=== PATIENT | female | born 1945 | race Hispanic/Latino ===

== ENCOUNTER 2017-12-25 15:24 | Inpatient (IN) | payer MEDICARE, BC ==
[2017-12-25 15:25] VITALS: BMI 25.7
--- NOTE | 2017-12-25 16:16 | C.PDOC ---
History Of Present Illness Patient is a 72 y/o female who presents to the ED with complaints of difficulty urinating and constipation for the last year. Patient's PMD Dr Whitaker is aware patient is in ED. Patient admits to taking lasix, methadone, and xanax. No other physical complaints at this time. She states she has tried numerous laxatives at home but with no success. Time Seen by Provider: 12/25/17 15:47 Chief Complaint (Nursing): Abdominal Pain History Per: Patient History/Exam Limitations: no limitations Onset/Duration Of Symptoms: Days (1 year) Current Symptoms Are (Timing): Still Present Context: Food Location Of Pain/Discomfort: Diffuse Associated Symptoms: Constipation, Urinary Symptoms (difficulty urinating) Recent travel outside of the [place]: No Past Medical History Reviewed: Historical Data, Nursing Documentation, Vital Signs Vital Signs: Last Vital Signs Temp 98.0 F 12/25/17 17:57 Pulse 71 12/25/17 17:57 Resp 18 12/25/17 17:57 BP 102/65 12/25/17 17:57 Pulse Ox 98 12/25/17 19:09 - Medical History PMH: Anxiety, CHF (possible), Fibromyalgia Other Surgeries: CATARAC PHACOEMULS/ASPIR (06/28/13). CYSTOMETROGRAM (10/27/13) . INSERT LENS AT CATAR EXT (06/28/13). URETHRAL DILATION (10/27/13) - [facility] Procedures CATARAC PHACOEMULS/ASPIR (06/28/13) CYSTOMETROGRAM (10/27/13) INSERT LENS AT CATAR EXT (06/28/13) URETHRAL DILATION (10/27/13) Family History: States: No Known Family Hx - Social History Hx Tobacco Use: No Hx Alcohol Use: No Hx Substance Use: No - Immunization History Hx Tetanus Toxoid Vaccination: No Hx Influenza Vaccination: No Hx Pneumococcal Vaccination: No Review Of Systems Except As Marked, All Systems Reviewed And Found Negative. Constitutional: Negative for: Fever Cardiovascular: Negative for: Chest Pain Gastrointestinal: Positive for: Constipation Genitourinary: Positive for: Other (difficulty urinating) Physical Exam - Physical Exam Additional Physical Exam Comments: Constitutional: No acute distress. Head: Normocephalic. Atraumatic. Eyes: PERRL. ENT: Moist mucous membranes. Neck: Supple. Cardiovascular: Regular rate. Radial pulse 2+ bilaterally. Chest: No tenderness. Respiratory: Clear to auscultation bilaterally. GI: Soft. Nontender. Nondistended. Back: No CVA tenderness. Musculoskeletal: No tenderness or swelling of extremities. Skin: No rash. Neurologic: Alert, no focal deficit. ED Course And Treatment - Laboratory Results Result Diagrams: 12/25/17 17:16 12/25/17 17:16 O2 Sat by Pulse Oximetry: 98 - CT Scan/US CT abdomen/pelvis Other Rad Studies (CT/US): Interpreted By Me, Read By Radiologist CT/US Interpretation: PROCEDURE: CT Abdomen and Pelvis without intravenous contrast. HISTORY: abd pain. COMPARISON: Comparison is made to the previous study dated 10/26/2013. TECHNIQUE: Technique. Axial and reformatted coronal and sagittal CT images of the abdomen and pelvis were obtained without IV or oral contrast administration. Contrast dose: Radiation dose: Total exam DLP = 209.05 mGy-cm. This CT exam was performed using one or more of the following dose reduction techniques: Automated exposure control, adjustment of the mA and/ or kV according to patient size, and/or use of iterative reconstruction technique. FINDINGS: LOWER THORAX: Unremarkable. LIVER: Unremarkable. No gross lesion or ductal dilatation. GALLBLADDER AND BILE DUCTS: There is no evidence of cholecystitis. The common bile duct is mildly dilated. PANCREAS: No evidence of pancreatitis or dilated main pancreatic duct. SPLEEN: Unremarkable. ADRENALS: Unremarkable. No mass. KIDNEYS AND URETERS: Unremarkable. No hydronephrosis. No solid mass. VASCULATURE: Unremarkable. No aortic aneurysm. BOWEL: Mildly distended large bowel loops demonstrate air- fluid levels and contains fluid density stool PE no evidence of small bowel obstruction. APPENDIX: No evidence of appendicitis. PERITONEUM: Unremarkable. No free fluid. No free air. LYMPH NODES: Unremarkable. No enlarged lymph nodes. BLADDER: There is Guerrero catheter in the bladder. The bladder is mildly distended. REPRODUCTIVE: Unremarkable. BONES: No acute fracture. OTHER FINDINGS: None. IMPRESSION: Limited assessment without IV or oral contrast administration. No evidence of nephrolithiasis or hydronephrosis. Distended large bowel contains fluid density stool and contains air-fluid levels. Correlate clinically for diarrhea and colitis. No evidence of cholecystitis. Mildly dilated common bile duct again noted. Progress Note: CT abdomen/pelvis, EKG, CXR, CBC, blood work, UA ordered. Medical Decision Making Medical Decision Making: CT A/P: IMPRESSION: Limited assessment without IV or oral contrast administration. No evidence of nephrolithiasis or hydronephrosis. Distended large bowel contains fluid density stool and contains air-fluid levels. Correlate clinically for diarrhea and colitis. No evidence of cholecystitis. Mildly dilated common bile duct again noted. Patient failed outpatient therapy. Dr. Whitaker agrees with observation under his service. Disposition - Disposition Disposition: HOSPITALIZED Disposition Time: 17:35 Condition: FAIR - Clinical Impression Clinical Impression: Constipation, Hyponatremia - Scribe Statement The provider has reviewed the documentation as recorded by the Scribe Julissa Ballesteros All medical record entries made by the Darreliberlinda were at my direction and personally dictated by me. I have reviewed the chart and agree that the record accurately reflects my personal performance of the history, physical exam, medical decision making, and the department course for this patient. I have also personally directed, reviewed, and agree with the discharge instructions and disposition.
[2017-12-25 17:20] LABS: BASO % 0.7 % (0.0-2.0); EOS # 0.1 K/uL (0.0-0.7); EOS % 1.8 % (0.0-4.0); HEMOGLOBIN 10.5 g/dL (11.0-16.0); LYMPH # 1.1 K/uL (1.0-4.3); LYMPH % 21.8 % (20.0-40.0); MEAN CELL VOLUME 89.4 fL (81.0-99.0); MEAN CORPUSCULAR HEMOGLOBIN 30.6 pg (27.0-31.0); MEAN CORPUSCULAR HGB CONC 34.2 g/dL (33.0-37.0); MEAN PLATELET VOLUME 6.9 fL (7.2-11.7); MONO # 0.4 K/uL (0.0-0.8); NEUT # 3.4 K/uL (1.8-7.0); NEUT % 67.7 % (50.0-75.0); RBC 3.44 Mil/uL (3.80-5.20); RED CELL DISTRIBUTION WIDTH 12.7 % (11.5-14.5)
[2017-12-25 17:25] LABS: URINE BACTERIA RARE (<OCC); URINE BILIRUBIN NEGATIVE (NEGATIVE); URINE BLOOD NEGATIVE (NEGATIVE); URINE CLARITY Clear (Clear); URINE COLOR Yellow (YELLOW); URINE GLUCOSE (UA) NORMAL (Normal); URINE HYALINE CAST 0-2 /lpf (0-2); URINE LEUKOCYTE ESTERASE NEG Leu/uL (Negative); URINE PROTEIN NEGATIVE (NEGATIVE); URINE UROBILINOGEN NORMAL mg/dL (0.2-1.0)
[2017-12-25 17:32] LABS: ALB/GLOB RATIO 1.3 (1.0-2.1); ALBUMIN 3.6 g/dL (3.5-5.0); CALCIUM 8.9 mg/dl (8.6-10.4)
--- NOTE | 2017-12-25 18:20 | CT ---
PROCEDURE: CT Abdomen and Pelvis without intravenous contrast HISTORY: abd pain COMPARISON: Comparison is made to the previous study dated 10/26/2013 TECHNIQUE: Technique. Axial and reformatted coronal and sagittal CT images of the abdomen and pelvis were obtained without IV or oral contrast administration. Contrast dose: Radiation dose: Total exam DLP = 209.05 mGy-cm. This CT exam was performed using one or more of the following dose reduction techniques: Automated exposure control, adjustment of the mA and/or kV according to patient size, and/or use of iterative reconstruction technique. FINDINGS: LOWER THORAX: Unremarkable. LIVER: Unremarkable. No gross lesion or ductal dilatation. GALLBLADDER AND BILE DUCTS: There is no evidence of cholecystitis. The common bile duct is mildly dilated. PANCREAS: No evidence of pancreatitis or dilated main pancreatic duct SPLEEN: Unremarkable. ADRENALS: Unremarkable. No mass. KIDNEYS AND URETERS: Unremarkable. No hydronephrosis. No solid mass. VASCULATURE: Unremarkable. No aortic aneurysm. BOWEL: Mildly distended large bowel loops demonstrate air-fluid levels and contains fluid density stool PE no evidence of small bowel obstruction. APPENDIX: No evidence of appendicitis. PERITONEUM: Unremarkable. No free fluid. No free air. LYMPH NODES: Unremarkable. No enlarged lymph nodes. BLADDER: There is Guerrero catheter in the bladder. The bladder is mildly distended. REPRODUCTIVE: Unremarkable. BONES: No acute fracture. OTHER FINDINGS: None. IMPRESSION: Limited assessment without IV or oral contrast administration. No evidence of nephrolithiasis or hydronephrosis. Distended large bowel contains fluid density stool and contains air-fluid levels. Correlate clinically for diarrhea and colitis. No evidence of cholecystitis. Mildly dilated common bile duct again noted.
[2017-12-25] MEDS ORDERED: Sodium Chloride 0.9% 1,000 ML IV ONE (18:50)
[2017-12-25] MEDS ORDERED: Sodium Chloride 0.9% 250 ML IV ONE (18:54)
--- NOTE | 2017-12-25 19:32 | RAD ---
HISTORY: abd pain COMPARISON: Comparison is made with 04/11/2013 FINDINGS: LUNGS: Hyperinflation of the lungs is noted. No evidence of new infiltrate or consolidation. PLEURA: No significant pleural effusion identified, no pneumothorax apparent. CARDIOVASCULAR: Normal. OSSEOUS STRUCTURES: No significant abnormalities. VISUALIZED UPPER ABDOMEN: Normal. OTHER FINDINGS: None. IMPRESSION: No evidence of acute pulmonary disease.
[2017-12-26] MEDS ORDERED: Home Med 1 UNIT (Alprazolam [Xanax] 2 MG) PO SCH ×2 (10:00)
[2017-12-26] MEDS ORDERED: Peg-Electrolyte Oral Soln 4L (Golytely) PO ONE (11:00)
--- NOTE | 2017-12-26 14:46 | PN ---
DATE: 12/26/2017 LOCATION: 562, bed A. SUBJECTIVE: This is a 72-year-old female seen and examined initially for GI consultation on 12/25/2017. They examined again today with complaint of severe constipation, postprandial abdominal distention with painful bowel movement, with generalized weakness and malaise. The most recent lab results, current and previous medication lists, current and previous medical events were reviewed and the patient had low hemoglobin of 10.5, hematocrit 30.7, sodium 129, CO2 content of 32. Abdominal and pelvic CAT scan done yesterday at the time of the admission indicative of limited study. Report is seen. The patient denied any actual chest pain, significant shortness of breath or palpitations, still has Guerrero catheter in place. PHYSICAL EXAMINATION: GENERAL: A 72-year-old female awake, alert, oriented, very anxious and restless. VITAL SIGNS: Afebrile with pulse of 76, respiratory rate 20 to 22, and blood pressure 124/74. HEENT: Showed pale, dry and oral mucous membranes. Nonicteric sclerae. LUNGS: Few scattered crepitation. Decreased air entry at bases. HEART: Positive S1 and S2. ABDOMEN: Soft with mild generalized tenderness, mildly distended. No mass or organomegaly. No rebound tenderness or guarding. EXTREMITIES: Without significant clubbing, cyanosis or edema. NEUROLOGIC: No reported new neurological deficits, sensory or motor. IMPRESSION: 1. Change of bowel movement habit of unclear etiology. 2. Known history of severe anxiety syndrome. 3. Fibromyalgia, by history. 4. Cataract surgery. 5. Reported history of questionable congestive heart failure before. 6. History of peptic ulcer disease. 7. Anemia to rule out occult gastrointestinal malignancy. 8. Electrolyte imbalance with hyponatremia. SUGGESTIONS: 1. Continue current management. 2. Cancer markers. 3. Endoscopic evaluation of the lower GI tract pending adequate preparation. 4. Further recommendations to follow. Vanessa Castaneda MD
[2017-12-26] MEDS ORDERED: Bisacodyl 5mg EC Tab PO ONE (17:00)
[2017-12-26] MEDS ORDERED: DiphenhydrAMINE 50 mg/ml Inj IVP ONE (21:25)
[2017-12-27] MEDS ORDERED: Simethicone 40 mg/0.6 ml Liquid (30 ml) PO ONE (01:28)
[2017-12-27 07:32] VITALS: O2SAT 96
[2017-12-27] MEDS ORDERED: Bisacodyl 5mg EC Tab PO ONE (08:00)
--- NOTE | 2017-12-27 08:15 | HP ---
HISTORY OF PRESENT ILLNESS: The patient is a 72-year-old female, history of chronic constipation, history of chronic pain, also complains of intractable constipation and abdominal pain. The patient came to the hospital, advised admission. The patient had been needing methadone for chronic pain. The patient has multiple laxatives, seen by several laborer pole crew, colorectal surgeon without improvement. The patient has been followed by pain management as well. The patient is a nonsmoker, nondrinker. The patient ____ anxiety. PHYSICAL EXAMINATION: GENERAL: The patient is awake, alert, and oriented. VITAL SIGNS: Temperature 98 and pulse 90. HEENT: Within normal limits. NECK: Supple. CHEST: Symmetrical. HEART: Regular. ABDOMEN: Soft. EXTREMITIES: No edema. ASSESSMENT AND PLAN: The patient suffers from intractable constipation, intractable abdominal pain, UTI. The patient to get bed rest, supportive care. Edd Whitaker MD
[2017-12-27] MEDS ORDERED: Enoxaparin 30 mg Syringe SC SCH (10:00)
--- NOTE | 2017-12-27 11:24 | CP.PCM.PN ---
Subjective - Date & Time of Evaluation Date of Evaluation: 12/27/17 Time of Evaluation: 11:20 - Subjective Subjective: Progress note. Attending: Dr. Whitaker. Pt seen and examined at bedside. No acute distress, but pt is upset she did not get ambien. Refusing colonoscopy. No fevers, chills, vomiting, diarrhea. Objective - Vital Signs/Intake and Output Vital Signs (last 24 hours): Temp Pulse Resp BP Pulse Ox 97.7 F 71 20 120/74 96 12/27/17 07:00 12/27/17 07:00 12/27/17 07:00 12/27/17 07:00 12/27/17 07:00 Intake and Output: 12/27/17 12/27/17 06:59 18:59 Intake Total 750 Output Total 2150 Balance -1400 - Medications Medications: Current Medications Enoxaparin Sodium (Lovenox) 30 mg SC DAILY [facility] Furosemide (Lasix) 40 mg PO DAILY [facility] Last Admin: 12/26/17 10:06 Dose: 40 mg Home Med (Alprazolam [Xanax]) 2 mg PO TID [facility] Methadone HCl (Methadone) 20 mg PO DAILY [facility] Last Admin: 12/26/17 10:08 Dose: 20 mg Methadone HCl (Methadone) 5 mg PO DAILY [facility] Last Admin: 12/26/17 10:08 Dose: 5 mg Metoclopramide HCl (Reglan) 5 mg IVP Q6H [facility] Last Admin: 12/27/17 08:38 Dose: 5 mg - Labs Labs: 12/25/17 17:16 12/25/17 17:16 - Constitutional Appears: Unkempt, Chronically Ill - Head Exam Head Exam: ATRAUMATIC, NORMAL INSPECTION, NORMOCEPHALIC - Eye Exam Eye Exam: EOMI - ENT Exam ENT Exam: Mucous Membranes Moist - Neck Exam Neck Exam: Full ROM, Normal Inspection - Respiratory Exam Respiratory Exam: NORMAL BREATHING PATTERN. absent: Respiratory Distress - Cardiovascular Exam Cardiovascular Exam: +S1, +S2 - GI/Abdominal Exam GI & Abdominal Exam: Soft, Tenderness, Normal Bowel Sounds - Back Exam Back Exam: NORMAL INSPECTION - Neurological Exam Neurological Exam: Alert, Awake, Oriented x3 - Psychiatric Exam Psychiatric exam: Flat Affect - Skin Skin Exam: Dry, Intact, Normal Color, Warm Assessment and Plan - Assessment and Plan (Free Text) Assessment: This is a 72 yo female with 1. Constipation/abdominal pain -ct scan shows distended large bowel with stool -reglan prn -pt refusing colonoscopy. -GI consult. Dr. Valdivia. recs appreciated. 2. Heroin abuse -methadone 25 mg po daily -psych consult? 3. hx of anxiety -xanax 2 mg po tid caridad 4. Hx of heart failure -lasix 40 mg po daily 5. GI/DVT ppx -scds -reglan prn discussed with Dr. Whitaker
[2017-12-27 12:11] LABS: BASO % 0.8 % (0.0-2.0); EOS # 0.1 K/uL (0.0-0.7); EOS % 1.6 % (0.0-4.0); HEMOGLOBIN 11.1 g/dL (11.0-16.0); LYMPH # 0.8 K/uL (1.0-4.3); LYMPH % 20.1 % (20.0-40.0); MEAN CELL VOLUME 87.8 fL (81.0-99.0); MEAN CORPUSCULAR HEMOGLOBIN 31.2 pg (27.0-31.0); MEAN CORPUSCULAR HGB CONC 35.6 g/dL (33.0-37.0); MEAN PLATELET VOLUME 7.1 fL (7.2-11.7); MONO # 0.2 K/uL (0.0-0.8); MONO % 6.2 % (0.0-10.0); NEUT # 2.7 K/uL (1.8-7.0); NEUT % 71.3 % (50.0-75.0); RBC 3.56 Mil/uL (3.80-5.20); RED CELL DISTRIBUTION WIDTH 12.3 % (11.5-14.5); WHITE BLOOD COUNT 3.8 K/uL (4.8-10.8)
[2017-12-27 12:28] LABS: ALB/GLOB RATIO 1.5 (1.0-2.1); ALT/SGPT 18 U/L (9-52); AST/SGOT 34 U/L (14-36); BLOOD UREA NITROGEN 3 mg/dL (7-17); CALCIUM 9.1 mg/dl (8.6-10.4); GFR AFRICAN-AMERICAN > 60; GFR NON-AFRICAN AMERICAN > 60
[2017-12-27 12:48] VITALS: BP 127/72
[2017-12-27 13:01] VITALS: PULSE 72; RESP 18; TEMP 98.6
--- NOTE | 2017-12-27 14:01 | CON ---
DATE: 12/25/[address] Castaneda to Dr. Edd Whitaker. I was called for GI consultation by the admitting medical team. The patient is seen and fully examined on 12/25/2017 as requested by the admitting medical staff. The entire chart is reviewed including but not limited to most recent lab and radiology study results, current and the previous medication lists, current and the previous medical events. Case discussed with the staff at length. HISTORY OF PRESENT ILLNESS: This 72-year-old female was admitted to the hospital through the emergency room with multiple complaints including mainly but not limited to severe constipation, difficulty urination, postprandial abdominal distention with recurrent what appears to be severe anxiety syndrome with intermittent periods of postprandial abdominal distention with dyspepsia and nausea on and off. No reported hematemesis, chest pain, palpitation, significant shortness of breath, chills or fever. PAST MEDICAL HISTORY: Including mainly but not limited to 1. Fibromyalgia. 2. Peptic ulcer disease. 3. Severe anxiety syndrome. 4. Status post ureteral dilation before. 5. Cataract surgery. CURRENT MEDICATIONS: Medication list post-admission was reviewed. The patient apparently had been on methadone due to history of drug abuse. FAMILY HISTORY: Unknown. SOCIAL HISTORY: No recent history of cigarette smoking or alcohol intake as per the patient's statement, again had been on methadone p.o. ALLERGIES TO MEDICATIONS: UNCLEAR. After being admitted to the hospital, initial blood workup showed a hemoglobin of 10.5, hematocrit 30.7, CO2 content 32 indicative of respiratory alkalosis with sodium 129, low. Abdomen and pelvic CAT scan was done. Official report is seen. PHYSICAL EXAMINATION: GENERAL: A 72-year-old female, complaining of severe abdominal pain with abdominal distention. VITAL SIGNS: Afebrile with pulse of 74, respiratory rate 20 to 22, blood pressure of 106/68. HEENT: Showed mildly pale, dry oral mucous membrane. Nonicteric sclerae. LYMPH NODES: No lymphadenitis or lymphadenopathy. LUNGS: Few scattered crepitation with decreased air entry at bases. HEART: Positive S1 and S2. ABDOMEN: Soft with mild generalized tenderness, with distention. No mass or organomegaly. No rebound tenderness or guarding. RECTAL EXAMINATION: The patient refused. EXTREMITIES: Without significant clubbing, cyanosis or edema. NEUROLOGIC: No reported new neurological deficits, sensory or motor. No reported new focal deficits. The patient appears to be again somewhat restless. Guerrero catheter is still in place. IMPRESSION: 1. Change of bowel movement with abnormal CAT scan of the abdomen and pelvis to rule out occult lower gastrointestinal tract malignancy. 2. Anemia, to rule out upper versus lower gastrointestinal blood loss. 3.. Re-exacerbation of peptic ulcer disease. 4. Known history of fibromyalgia, severe anxiety syndrome. SUGGESTIONS: 1. Agree with your plan. 2. Endoscopic evaluation when the patient is more stable clinically of the lower GI tract. 3. Cancer markers. 4. Proton pump inhibitors. 5. Antireflux measures. 6. Further recommendation to follow post colonoscopy. Thank you for letting me to participate in your patient's case management. Vanessa Castaneda MD
--- NOTE | 2017-12-27 16:07 | PN ---
DATE: 12/27/2017 LOCATION: 562, bed A. SUBJECTIVE: This 72-year-old female seen and examined early in rounds, was scheduled for colonoscopy today, the patient refused after taking most of the preparation. No reported active bleeding, but still complaining of persistent abdominal pain and some change of bowel movement habit without reported active bleeding or generalized weakness or malaise. The entire chart is reviewed including but not limited to the most recent lab and radiology study results, current and the previous medication list, current and the previous medical events, denied any chills or fever, chest pain or palpitation, appeared to be very anxious and restless. Case discussed at length with Dr. Whitaker after the patient refused her colonoscopy and today's lab showed low hematocrit of 31.3, white blood cells 3.8, normal platelet count. The rest of the lab is still pending. Cancer marker reported yesterday to be normal including CEA. PHYSICAL EXAMINATION: GENERAL: A 72-year-old female, awake, alert, oriented. VITAL SIGNS: Afebrile with pulse of 74, respiratory rate 20 to 22, blood pressure 128/72. HEENT: Showed pale, dry oral mucous membrane, nonicteric sclerae. LUNGS: Few scattered crepitation. Decreased air entry at bases. HEART: Positive S1 and S2. ABDOMEN: Soft with mild generalized tenderness and mild distention. No mass or organomegaly. No rebound tenderness or guarding. EXTREMITIES: Without significant clubbing, cyanosis or edema. NEUROLOGIC: No reported new neurological deficits, sensory or motor. IMPRESSION: 1. Change of bowel movement habit of unclear etiology that could be secondary to drug induce. 2. Severe anxiety syndrome, by history. 3. History of fibromyalgia. 4. Reported history of cataract surgery. 5. Electrolyte imbalance. 6. History of congestive heart failure, as reported. 7. Known history of peptic ulcer disease. 8. Mild anemia, by recent history. SUGGESTIONS: 1. Continue current management. 2. Advance diet to high fiber, no citrus, no seeds. 3. Linzess 290 one tablet p.o. daily with meals, as outpatient. 4. MiraLax one tablespoon twice a day p.o. 5. Further recommendations to follow and the patient requested to go home today, that to be discussed again with Dr. Whitaker. Vanessa Castaneda MD [facility] # [id number]
== END 2017-12-27 15:35 | disposition home or self-care (01) | DRG 392 ==
LOC: C.ER 15:24 → C.9E 18:37 → C.5S 19:49 → OBSVTOIN 12-26 10:43
PROVIDERS: ADMIT Internal Medicine Pulmonary Disease; ATTEND Internal Medicine Pulmonary Disease
DX: K59.00 Constipation, unspecified (principal); E87.3 Alkalosis; E87.1 Hypo-osmolality and hyponatremia; N39.0 Urinary tract infection, site not specified; K52.9 Noninfective gastroenteritis and colitis, unspecified; K27.9 Peptic ulcer, site unspecified, unspecified as acute or chronic, without hemorrhage or perforation; F11.10 Opioid abuse, uncomplicated; F41.9 Anxiety disorder, unspecified; D64.9 Anemia, unspecified; I50.9 Heart failure, unspecified; M79.7 Fibromyalgia

== ENCOUNTER 2018-04-10 10:36 | Inpatient (IN) | payer MEDICARE, BC ==
[2018-04-10 10:36] VITALS: BMI 25.7
[2018-04-10] MEDS ORDERED: Magnesium Citrate Oral SOL (300 ml) PO STA ×2 (11:44→17:20)
--- NOTE | 2018-04-10 11:44 | C.PDOC ---
History Of Present Illness 73 year old female, with history of methadone and xanax presents to the emergency department complaining of constipation since yesterday. She also requests methadone detox. States she takes about 5 or 6 tabs a day of Xanax 2 mg and methadone 15 mg qd. Patient notes of dysuria but denies any bleeding, bloody stool, or black tarry stool. Her last bowel movement was 2 days ago after taking laxatives. No laxative was taken last night. Pt denies blood in stool, n/v, fever, chest pain. Time Seen by Provider: 04/10/18 11:30 Chief Complaint (Nursing): Pain, Chronic History Per: Patient, Family History/Exam Limitations: no limitations Onset/Duration Of Symptoms: Days Current Symptoms Are (Timing): Still Present Past Medical History Reviewed: Historical Data, Nursing Documentation, Vital Signs Vital Signs: Last Vital Signs Temp 98.3 F 04/10/18 15:16 Pulse 75 04/10/18 15:16 Resp 17 04/10/18 15:16 BP 119/75 04/10/18 15:16 Pulse Ox 98 04/10/18 18:46 - Medical History PMH: Anxiety, CHF (possible), Fibromyalgia - [facility] Procedures CATARAC PHACOEMULS/ASPIR (06/28/13) CYSTOMETROGRAM (10/27/13) INSERT LENS AT CATAR EXT (06/28/13) URETHRAL DILATION (10/27/13) Family History: States: No Known Family Hx - Social History Hx Tobacco Use: No Hx Alcohol Use: No Hx Substance Use: No - Immunization History Hx Tetanus Toxoid Vaccination: No Hx Influenza Vaccination: No Hx Pneumococcal Vaccination: No Review Of Systems Except As Marked, All Systems Reviewed And Found Negative. Constitutional: Negative for: Fever, Chills Cardiovascular: Negative for: Chest Pain Respiratory: Negative for: Shortness of Breath Gastrointestinal: Positive for: Constipation. Negative for: Melena Genitourinary: Positive for: Dysuria. Negative for: Hematuria Neurological: Negative for: Weakness, Numbness Physical Exam - Physical Exam Appears: Non-toxic, No Acute Distress Skin: Normal Color, Warm, Dry Head: Atraumatic, Normacephalic Eye(s): bilateral: Normal Inspection Oral Mucosa: Moist Tongue: Normal Appearing Lips: Normal Appearing Neck: Normal, Normal ROM, Supple Lymphatic: Normal Exam Chest: Symmetrical Cardiovascular: Rhythm Regular Respiratory: Normal Breath Sounds Gastrointestinal/Abdominal: Normal Exam, Bowel Sounds, Soft, No Tenderness Back: Normal Inspection, No CVA Tenderness Extremity: Normal ROM Extremity: Bilateral: Atraumatic Neurological/Psych: Oriented x3, Normal Speech, Normal Motor, Normal Sensation Gait: Steady ED Course And Treatment - Laboratory Results Result Diagrams: 04/10/18 12:00 04/10/18 12:00 Lab Interpretation: Abnormal (urine wbc and leuk est elevated) ECG: Interpreted By Me, Viewed By Me ECG Interpretation: No Acute Changes Interpretation Of ECG: Normal sinus rhythm. Nonspecific ST abnormality. Rate From EC O2 Sat by Pulse Oximetry: 98 (RA) Pulse Ox Interpretation: Normal - Other Rad Abdomen Obstructive X-Ray X-Ray: Read By Radiologist Interpretation: FINDINGS: CHEST: Lungs: The lungs are well inflated and clear. Cardiovascular: Normal size heart. No pulmonary vascular congestion. Pleura: No pleural fluid. No pneumothorax. Other findings: None. ABDOMEN AND PELVIS: Bowel: There is large amount of stool in the colon. Bowel gas pattern is nonobstructive. Free air: None. Bones: Unremarkable. Other findings: None. IMPRESSION: Large stool burden in the colon. Nonobstructive bowel-gas pattern. Clear lungs. Progress Note: Dr. Whitaker called, he requested pt to be evaluated by Hospitalist. Dr. Miramontes called, case discussed, Dr. Valdivia consult ordered. Medical Decision Making Medical Decision Making: Impression: Rectal Pain Plan: -Labs -Obstructive X-Ray -Magnesium Citrate 300 ml PO -Fleet Enema 135 ml CA -Urinalysis Pt did not like the taste of Mg Citrate and was encourage to finish over 5 times by me and RNs. Pt was seen by personnel worker. Pt was accepted by Dr. Freeman for detox and hospitalist and Dr. Valdivia will consult. Disposition Counseled Patient/Family Regarding: Studies Performed, Diagnosis - Disposition Disposition: HOSPITALIZED Disposition Time: 17:25 Condition: STABLE - POA Present On Arrival: None - Clinical Impression Clinical Impression: Constipation, Drug abuse and dependence, Urinary tract infection - PA / SYSTEM CONTROLLER / Resident Statement MD/DO has reviewed & agrees with the documentation as recorded. - Scribe Statement The provider has reviewed the documentation as recorded by the Darrelibe Tatiana Trejo All medical record entries made by the Scribe were at my direction and personally dictated by me. I have reviewed the chart and agree that the record accurately reflects my personal performance of the history, physical exam, medical decision making, and the department course for this patient. I have also personally directed, reviewed, and agree with the discharge instructions and disposition. Decision To Admit - Pt Status Changed To: Hospital Disposition Of: Inpatient - Admit Certification Admit to Inpatient:: After my assessment, the patient will require hospitalization for at least two midnights. This is because of the severity of symptoms shown, intensity of services needed, and/or the medical risk in this patient being treated as an outpatient. - InPatient: Physician Admission Certification: I certify that this patient requires 2 or more midnights of care for the following reason:: pt is admitted for detox with IM and GI consult for constipation and uti. - . Bed Request Type: Psychiatry Admitting Physician: Kait Freeman Patient Diagnosis: Constipation, Drug abuse and dependence, Urinary tract infection
[2018-04-10 12:06] LABS: BASO # 0.1 K/uL (0.0-0.2); BASO % 1.3 % (0.0-2.0); EOS # 0.1 K/uL (0.0-0.7); EOS % 2.4 % (0.0-4.0); HEMOGLOBIN 11.8 g/dL (11.0-16.0); LYMPH % 25.9 % (20.0-40.0); MEAN CELL VOLUME 88.1 fL (81.0-99.0); MEAN CORPUSCULAR HEMOGLOBIN 30.7 pg (27.0-31.0); MEAN CORPUSCULAR HGB CONC 34.8 g/dL (33.0-37.0); MEAN PLATELET VOLUME 7.3 fL (7.2-11.7); MONO # 0.3 K/uL (0.0-0.8); MONO % 7.9 % (0.0-10.0); NEUT # 2.3 K/uL (1.8-7.0); NEUT % 62.5 % (50.0-75.0); RBC 3.84 Mil/uL (3.80-5.20); WHITE BLOOD COUNT 3.8 K/uL (4.8-10.8)
[2018-04-10 12:11] LABS: SQUAMOUS EPITHIAL 1 /hpf (0-5); URINE BACTERIA RARE (<OCC); URINE BILIRUBIN NEGATIVE (NEGATIVE); URINE BLOOD NEGATIVE (NEGATIVE); URINE CLARITY Clear (Clear); URINE COLOR Straw (YELLOW); URINE GLUCOSE (UA) NORMAL (Normal); URINE LEUKOCYTE ESTERASE 2+ Leu/uL (Negative); URINE PROTEIN NEGATIVE (NEGATIVE); URINE UROBILINOGEN NORMAL mg/dL (0.2-1.0)
[2018-04-10 12:21] LABS: ALB/GLOB RATIO 1.4 (1.0-2.1); ALBUMIN 4.1 g/dL (3.5-5.0); ALT/SGPT 24 U/L (9-52); AST/SGOT 30 U/L (14-36); BLOOD UREA NITROGEN 10 mg/dL (7-17); CALCIUM 9.8 mg/dl (8.6-10.4); GFR NON-AFRICAN AMERICAN > 60
--- NOTE | 2018-04-10 12:37 | RAD ---
Date of service: 04/10/2018 PROCEDURE: Radiographs of the chest and abdomen (obstructive series) HISTORY: CONSTIPATION COMPARISON: No prior. TECHNIQUE: AP radiograph of the chest, with upright and supine radiographs of the abdomen. FINDINGS: CHEST: Lungs: The lungs are well inflated and clear. Cardiovascular: Normal size heart. No pulmonary vascular congestion. Pleura: No pleural fluid. No pneumothorax. Other findings: None. ABDOMEN AND PELVIS: Bowel: There is large amount of stool in the colon. Bowel gas pattern is nonobstructive. Free air: None. Bones: Unremarkable. Other findings: None. IMPRESSION: Large stool burden in the colon. Nonobstructive bowel-gas pattern. Clear lungs.
[2018-04-10] MEDS ORDERED: Magnesium Citrate Oral SOL (300 ml) ONE ×2 (13:02→17:38)
[2018-04-10 13:36] LABS: BARBITURATES, UR NEGATIVE (NEGATIVE); OPIATES, UR NEGATIVE (NEGATIVE); PHENCYCLIDINE, UR NEGATIVE (NEGATIVE)
[2018-04-10 13:42] LABS: BENZODIAZEPINES, UR POSITIVE (NEGATIVE)
--- NOTE | 2018-04-10 19:30 | CP.PCM.CON ---
<Chrystal Finley - Last Filed: 04/11/18 07:24> History of Present Illness - History of Present Illness History of Present Illness: Medicine Consult Note: Patient is a 73 year old female with past medical history of anxiety, fibromyalgia, chronic constipation, uretheral stenosis s/p uretheral dilation in 2013 who presented to the ED requesting detox from methadone and xanax. Patient states that she has been suffering from chronic constipation for many years. She was initially taking percocet for chronic pain. She then started taking methadone. Patient states that at one point she was being prescribed 60mg of methadone a day however in order to conserve her pills and taper the dose, she reports taking 15 mg a day. She believes that her methadone pills are . She takes 5-6 pills of xanax daily and when she does not take xanax she experiences body shakes. She last took methadone and xanax earlier today prior to admission. Patient reports that she was taking multiple stool softeners at home two days ago and was able to have a bowel movement. She was admitted in 12/2017 for the same complaint and refused colonoscopy at that time. Currently patient is anxious about her medical health. She is complaining of dysuria and not being able to urinate. She denies fevers, chills, headaches, dizziness, cp, palpitations, sob, abdominal pain. ED course: Fleet enema x 1, Mag citrate 300mg PO, Mag citrate 150mg PO PMD: Dr Whitaker Allergies: NKDA Medications: Methadone 25mg PO daily, Lasix 40mg PO daily, Xanax 2mg PO TID, Ambien 10mg PO HS Medical History: Urinary retention, anxiety, fibromyalgia, urethral stenosis Surgical History: Right toe surgery, bilateral cataract surgery, uretheral dilation in 2013 Social History: Former smoker, quit is 1986; denies alcohol or drug use; last colonoscopy was March 2017 that showed colitis (per patient) Family History: Mother - health, ; Father - Heart disease, Renal disease Past Patient History - Past Medical History & Family History Past Medical History?: Yes - Past Social History Smoking Status: Former Smoker - CARDIAC Hx Congestive Heart Failure: Yes (possible) - PULMONARY Hx Tuberculosis: No (Patient denied) - NEUROLOGICAL HX Cerebrovascular Accident: No (Patient denied) Hx Seizures: No (Patient denied) - HEENT Hx HEENT Problems: Yes Hx Cataracts: Yes - HEMATOLOGICAL/ONCOLOGICAL Other/Comment: corin dugan - MUSCULOSKELETAL/RHEUMATOLOGICAL Hx Musculoskeletal Disorders: Yes - GENITOURINARY/GYNECOLOGICAL Hx Sexually Transmitted Disorders: No (Patient denied) - PSYCHIATRIC Hx Anxiety: Yes Hx Substance Use: No - SURGICAL HISTORY Hx Surgeries: Yes Hx Cataract Extraction: Yes Other/Comment: Colonoscopy - ANESTHESIA Hx Anesthesia: Yes Hx Anesthesia Reactions: No Meds Allergies/Adverse Reactions: Allergies Allergy/AdvReac Type Severity Reaction Status Date / Time No Known Allergies Allergy Verified 04/11/13 11:25 - Medications Medications: Current Medications Cephalexin Monohydrate (Keflex) 500 mg PO Q6H DEREK PRN Reason: Protocol Stop: 04/17/18 19:01 Chlordiazepoxide (Librium) 25 mg PO Q4H PRN PRN Reason: Alcohol Withdrawal Chlordiazepoxide (Librium) 25 mg PO Q6 DEREK PRN Reason: Taper Stop: 04/14/18 19:59 Clonidine HCl (Catapres) 0.1 mg PO Q4H PRN PRN Reason: Symptoms of alcohol withdrawl Folic Acid (Folic Acid) 1 mg PO DAILY DEREK Furosemide (Lasix) 40 mg PO DAILY DEREK Hydroxyzine HCl (Atarax) 25 mg PO Q6H PRN PRN Reason: Anxiety Ibuprofen (Motrin Tab) 400 mg PO Q6H PRN PRN Reason: Pain, moderate (4-7) Lactulose (Enulose) 30 gm PO TID DEREK Multivitamins (Hexavitamin) 1 tab PO DAILY DEREK Thiamine HCl (Vitamin B1 Tab) 100 mg PO DAILY DEREK Trazodone HCl (Desyrel) 50 mg PO HS DEREK Physical Exam - Constitutional Appears: No Acute Distress, Cachectic - Head Exam Head Exam: ATRAUMATIC, NORMAL INSPECTION - Eye Exam Eye Exam: EOMI, Normal appearance, PERRL Pupil Exam: NORMAL ACCOMODATION - ENT Exam ENT Exam: Mucous Membranes Moist - Respiratory Exam Respiratory Exam: Clear to Auscultation Bilateral, NORMAL BREATHING PATTERN. absent: Rales, Rhonchi, Wheezes - Cardiovascular Exam Cardiovascular Exam: REGULAR RHYTHM, +S1, +S2. absent: Systolic Murmur - GI/Abdominal Exam GI & Abdominal Exam: Normal Bowel Sounds, Soft. absent: Guarding, Hernia, Rebound, Rigid, Tenderness - Extremities Exam Extremities exam: Positive for: normal inspection, pedal edema, pedal pulses present - Back Exam Back exam: NORMAL INSPECTION - Neurological Exam Neurological exam: Alert, Oriented x3 - Psychiatric Exam Psychiatric exam: Anxious, Normal Mood - Skin Skin Exam: Dry, Normal Color, Warm Results - Vital Signs Recent Vital Signs: Last Vital Signs Temp 98.3 F 04/10/18 15:16 Pulse 75 04/10/18 15:16 Resp 17 04/10/18 15:16 BP 119/75 04/10/18 15:16 Pulse Ox 98 04/10/18 18:48 - Labs Result Diagrams: 04/10/18 12:00 04/10/18 12:00 Labs: Laboratory Results - last 24 hr 04/10/18 04/10/18 04/10/18 12:00 12:00 12:00 WBC 3.8 L RBC 3.84 Hgb 11.8 Hct 33.8 L MCV 88.1 MCH 30.7 MCHC 34.8 RDW 13.0 Plt Count 261 MPV 7.3 Neut % (Auto) 62.5 Lymph % (Auto) 25.9 [place] % (Auto) 7.9 Eos % (Auto) 2.4 Baso % (Auto) 1.3 Neut # (Auto) 2.3 Lymph # (Auto) 1.0 [place] # (Auto) 0.3 Eos # (Auto) 0.1 Baso # (Auto) 0.1 Sodium 134 Potassium 3.8 Chloride 93 L Carbon Dioxide 29 Anion Gap 16 BUN 10 Creatinine 0.9 Est GFR ( Amer) > 60 Est GFR (Non-Af Amer) > 60 Random Glucose 95 Calcium 9.8 Total Bilirubin 0.5 AST 30 ALT 24 Alkaline Phosphatase 70 Total Protein 7.0 Albumin 4.1 Globulin 3.0 Albumin/Globulin Ratio 1.4 Urine Color Straw Urine Clarity Clear Urine pH 6.0 Ur Specific [place] 1.005 Urine Protein Negative Urine Glucose (UA) Normal Urine Ketones Negative Urine Blood Negative Urine Nitrate Negative Urine Bilirubin Negative Urine Urobilinogen Normal Ur Leukocyte Esterase 2+ H Urine WBC (Auto) 11 H Urine RBC (Auto) 1 Ur Squamous Epith Cells 1 Urine Bacteria Rare Urine Opiates Screen Urine Methadone Screen Ur Barbiturates Screen Ur Phencyclidine Scrn Ur Amphetamines Screen U Benzodiazepines Scrn U Oth Cocaine Metabols U Cannabinoids Screen Alcohol, Quantitative < 10 04/10/18 12:55 WBC RBC Hgb Hct MCV MCH MCHC RDW Plt Count MPV Neut % (Auto) Lymph % (Auto) [place] % (Auto) Eos % (Auto) Baso % (Auto) Neut # (Auto) Lymph # (Auto) [place] # (Auto) Eos # (Auto) Baso # (Auto) Sodium Potassium Chloride Carbon Dioxide Anion Gap BUN Creatinine Est GFR ( Amer) Est GFR (Non-Af Amer) Random Glucose Calcium Total Bilirubin AST ALT Alkaline Phosphatase Total Protein Albumin Globulin Albumin/Globulin Ratio Urine Color Urine Clarity Urine pH Ur Specific [place] Urine Protein Urine Glucose (UA) Urine Ketones Urine Blood Urine Nitrate Urine Bilirubin Urine Urobilinogen Ur Leukocyte Esterase Urine WBC (Auto) Urine RBC (Auto) Ur Squamous Epith Cells Urine Bacteria Urine Opiates Screen Negative Urine Methadone Screen Positive H Ur Barbiturates Screen Negative Ur Phencyclidine Scrn Negative Ur Amphetamines Screen Negative U Benzodiazepines Scrn Positive U Oth Cocaine Metabols Negative U Cannabinoids Screen Negative Alcohol, Quantitative Assessment & Plan - Assessment and Plan (Free Text) Assessment: A/P: Patient is a 73 year old female with past medical history of fibromylagia, ureteral stenosis s/p ureteral dilation, chronic constipation, anxiety who presents today with constipation and requesting detox from methadone, xanax. Intractable Constipation -Stable, afebrile -Could be due to chronic opioid use -Abdominal x ray showed large stool burden in the colon, non-obstructive bowel gas pattern -Patient received Fleet enema and magnesium citrate in the ED -Lactulose 30mg PO TID, Miralax 17gm daily, Colace 100mg PO daily -GI, Dr Valdivia, on consult, help appreciated -Monitor bowel function Benzodiazapine dependence -Management per psych team Hemorrhoids -Anusol cream BID Urinary tract Infection -UA showed +2 leukesterase, 11 WBC -F/U urine culture -Continue Keflex 500mg PO Q6H Malnutrition -Ensure Enlive TID -Multivitamins 1 tab PO daily Plan discussed with Dr Loretta Finley DO PGY-2 <Dar Burgos P - Last Filed: 04/11/18 07:36> Meds - Medications Medications: Current Medications Chlordiazepoxide (Librium) 25 mg PO Q4H PRN PRN Reason: Alcohol Withdrawal Chlordiazepoxide (Librium) 25 mg PO Q6 DEREK PRN Reason: Taper Stop: 04/14/18 19:59 Last Admin: 04/11/18 07:02 Dose: 25 mg Clonidine HCl (Catapres) 0.1 mg PO Q4H PRN PRN Reason: Symptoms of alcohol withdrawl Docusate Sodium (Colace) 100 mg PO DAILY DEREK Folic Acid (Folic Acid) 1 mg PO DAILY DEREK Furosemide (Lasix) 40 mg PO DAILY DEREK Hydrocortisone (Anusol-Hc) 0 gm ME BID DEREK Hydroxyzine HCl (Atarax) 25 mg PO Q6H PRN PRN Reason: Anxiety Last Admin: 04/11/18 01:49 Dose: 25 mg Ibuprofen (Motrin Tab) 400 mg PO Q6H PRN PRN Reason: Pain, moderate (4-7) Lactulose (Enulose) 30 gm PO TID DEREK Multivitamins (Hexavitamin) 1 tab PO DAILY [facility] Polyethylene Glycol (Miralax) 17 gm PO DAILY [facility] Last Admin: 04/10/18 23:44 Dose: Not Given Thiamine HCl (Vitamin B1 Tab) 100 mg PO DAILY DEREK Trazodone HCl (Desyrel) 50 mg PO HS [facility] Last Admin: 04/10/18 21:05 Dose: 50 mg Results - Vital Signs Recent Vital Signs: Last Vital Signs Temp 97.8 F 04/10/18 19:25 Pulse 75 04/10/18 19:25 Resp 18 04/10/18 19:25 BP 125/79 04/10/18 19:25 Pulse Ox 99 04/10/18 19:25 - Labs Result Diagrams: 04/10/18 12:00 04/10/18 12:00 Labs: Laboratory Results - last 24 hr 04/10/18 04/10/18 04/10/18 12:00 12:00 12:00 WBC 3.8 L RBC 3.84 Hgb 11.8 Hct 33.8 L MCV 88.1 MCH 30.7 MCHC 34.8 RDW 13.0 Plt Count 261 MPV 7.3 Neut % (Auto) 62.5 Lymph % (Auto) 25.9 [place] % (Auto) 7.9 Eos % (Auto) 2.4 Baso % (Auto) 1.3 Neut # (Auto) 2.3 Lymph # (Auto) 1.0 [place] # (Auto) 0.3 Eos # (Auto) 0.1 Baso # (Auto) 0.1 Sodium 134 Potassium 3.8 Chloride 93 L Carbon Dioxide 29 Anion Gap 16 BUN 10 Creatinine 0.9 Est GFR ( Amer) > 60 Est GFR (Non-Af Amer) > 60 Random Glucose 95 Calcium 9.8 Total Bilirubin 0.5 AST 30 ALT 24 Alkaline Phosphatase 70 Total Protein 7.0 Albumin 4.1 Globulin 3.0 Albumin/Globulin Ratio 1.4 Urine Color Straw Urine Clarity Clear Urine pH 6.0 Ur Specific [place] 1.005 Urine Protein Negative Urine Glucose (UA) Normal Urine Ketones Negative Urine Blood Negative Urine Nitrate Negative Urine Bilirubin Negative Urine Urobilinogen Normal Ur Leukocyte Esterase 2+ H Urine WBC (Auto) 11 H Urine RBC (Auto) 1 Ur Squamous Epith Cells 1 Urine Bacteria Rare Urine Opiates Screen Urine Methadone Screen Ur Barbiturates Screen Ur Phencyclidine Scrn Ur Amphetamines Screen U Benzodiazepines Scrn U Oth Cocaine Metabols U Cannabinoids Screen Alcohol, Quantitative < 10 04/10/18 12:55 WBC RBC Hgb Hct MCV MCH MCHC RDW Plt Count MPV Neut % (Auto) Lymph % (Auto) [place] % (Auto) Eos % (Auto) Baso % (Auto) Neut # (Auto) Lymph # (Auto) [place] # (Auto) Eos # (Auto) Baso # (Auto) Sodium Potassium Chloride Carbon Dioxide Anion Gap BUN Creatinine Est GFR ( Amer) Est GFR (Non-Af Amer) Random Glucose Calcium Total Bilirubin AST ALT Alkaline Phosphatase Total Protein Albumin Globulin Albumin/Globulin Ratio Urine Color Urine Clarity Urine pH Ur Specific [place] Urine Protein Urine Glucose (UA) Urine Ketones Urine Blood Urine Nitrate Urine Bilirubin Urine Urobilinogen Ur Leukocyte Esterase Urine WBC (Auto) Urine RBC (Auto) Ur Squamous Epith Cells Urine Bacteria Urine Opiates Screen Negative Urine Methadone Screen Positive H Ur Barbiturates Screen Negative Ur Phencyclidine Scrn Negative Ur Amphetamines Screen Negative U Benzodiazepines Scrn Positive U Oth Cocaine Metabols Negative U Cannabinoids Screen Negative Alcohol, Quantitative Attending/Attestation - Attestation I have personally seen and examined this patient.: Yes I have fully participated in the care of the patient.: Yes I have reviewed all pertinent clinical information: Yes Notes (Text): Patient is a 73 year old female with past medical history of fibromylagia, ureteral stenosis s/p ureteral dilation, chronic constipation, anxiety who presents today with constipation and requesting detox from methadone, xanax. Assessment BZD withdrawal appears more apparent Chronic constipation with external hemorrhoids H/o uretheric stricture and urinary retention Malnutrition, weight loss Plan BZD and opiod withdrawal being managed by detox lactulose 20ml tid, Mirallax 17g daily, docusate 100mg daily May add to above regime if not effective initially but would need for chronic maintainence, Golytely as next step in management of constipation Post void bladder residual q8hrs Protein calorie boost, mvt See orders for detail.
--- NOTE | 2018-04-10 19:46 | PCM.BM ---
<YohanMarli - Last Filed: 04/10/18 19:44> Treatment Plan Problems - Problems identified on initial assessmt potential for Benzo withdrawal Date Initiated: 04/10/18 Time Initiated: 19:45 Assessment reference: NA Status: Active Treatment assets and liabiliti Patient Assests: negotiates basic needs, cognitively intact Patient Liabilities: substance abuse (Xanax ), medical problems (CHF, fibromyalgia), other (needs assiatance with ADL's) - Milieu Protocol Maintain good personal hygiene: daily Encourage regular showers, daily Remind patient to perform daily oral care, daily Assist patient to perform ADL's Conduct patient checks and document Observation sheet: Q15 minutes Maintain personal safety: every shift Educate patient to report safety concerns to staff, every shift Monitor environment for contraband/sharps Medication safety: Monitor for expected outcome, potential side effects: every shift, Assess barriers to learning: every shift, Assess readiness for medication education: every shift <Kait Freeman - Last Filed: 04/10/18 20:37> - Diagnosis (1) Sedative, hypnotic or anxiolytic use disorder, severe, dependence Status: Acute Interventions: 04/10/18 20:36 * Assess 7x/week regarding severity of withdrawal * Educate regarding risks, benefits, side effects and alternatives of medications * Use Motivational Interviewing for abstinence * Use CBT for relapse prevention * Medication management for withdrawal symptoms * Encourage medication assisted treatment * (2) Opioid use disorder, severe, dependence Status: Acute Interventions: 04/10/18 20:37 * Assess 7x/week regarding severity of withdrawal * Educate regarding risks, benefits, side effects and alternatives of medications * Use Motivational Interviewing for abstinence * Use CBT for relapse prevention * Medication management for withdrawal symptoms * Encourage medication assisted treatment *
[2018-04-10] MEDS: POLYETHYLENE GLYCOL 3350 17 GM/Dose PACKET PO SCH (23:44)
--- NOTE | 2018-04-11 07:59 | CP.PCM.PN ---
<Carissa Rivera - Last Filed: 04/11/18 13:18> Subjective - Date & Time of Evaluation Date of Evaluation: 04/11/18 Time of Evaluation: 07:00 - Subjective Subjective: PGY2- Progress Note for Dr. Miramontes Patient seen and examined at bedside and in no acute distress. Patient was straight catheterized last night in the ER, but has not urinated since. Patient was given an enema in the ER, but has not had a bowel movement. Patient denies any chest pain, abdominal pain, nausea, or vomiting. Patient denies any dysuria or hematuria. Patient said Dr. Whitaker prescribed her antibiotics for a UTI 1 month ago which she never completed because they caused her abdominal pain. Patient seen again at 1200 and had voided and had a bowel movement. Objective - Vital Signs/Intake and Output Vital Signs (last 24 hours): Temp Pulse Resp BP Pulse Ox 97.8 F 75 18 125/79 99 04/10/18 19:25 04/10/18 19:25 04/10/18 19:25 04/10/18 19:25 04/10/18 19:25 - Medications Medications: Current Medications Chlordiazepoxide (Librium) 25 mg PO Q4H PRN PRN Reason: Alcohol Withdrawal Chlordiazepoxide (Librium) 25 mg PO Q6 DEREK PRN Reason: Taper Stop: 04/14/18 19:59 Last Admin: 04/11/18 07:02 Dose: 25 mg Clonidine HCl (Catapres) 0.1 mg PO Q4H PRN PRN Reason: Symptoms of alcohol withdrawl Docusate Sodium (Colace) 100 mg PO DAILY [facility] Folic Acid (Folic Acid) 1 mg PO DAILY [facility] Furosemide (Lasix) 40 mg PO DAILY [facility] Hydrocortisone (Anusol-Hc) 0 gm [place] BID [facility]K Hydroxyzine HCl (Atarax) 25 mg PO Q6H PRN PRN Reason: Anxiety Last Admin: 04/11/18 01:49 Dose: 25 mg Ibuprofen (Motrin Tab) 400 mg PO Q6H PRN PRN Reason: Pain, moderate (4-7) Lactulose (Enulose) 30 gm PO TID [facility] Multivitamins (Hexavitamin) 1 tab PO DAILY [facility] Polyethylene Glycol (Miralax) 17 gm PO DAILY [facility] Last Admin: 09/23/18 23:44 Dose: Not Given Thiamine HCl (Vitamin B1 Tab) 100 mg PO DAILY [facility] Trazodone HCl (Desyrel) 50 mg PO HS [facility] Last Admin: 04/10/18 21:05 Dose: 50 mg - Labs Labs: 04/10/18 12:00 04/10/18 12:00 - Constitutional Appears: Non-toxic, No Acute Distress - Head Exam Head Exam: ATRAUMATIC, NORMAL INSPECTION, NORMOCEPHALIC - Eye Exam Eye Exam: EOMI, Normal appearance - ENT Exam ENT Exam: Mucous Membranes Moist - Respiratory Exam Respiratory Exam: Clear to Ausculation Bilateral, NORMAL BREATHING PATTERN - Cardiovascular Exam Cardiovascular Exam: REGULAR RHYTHM, RRR, +S1, +S2 - GI/Abdominal Exam GI & Abdominal Exam: Soft, Normal Bowel Sounds. absent: Tenderness - Extremities Exam Extremities Exam: Normal Inspection. absent: Pedal Edema, Tenderness - Neurological Exam Neurological Exam: Alert, Awake, Oriented x3 - Psychiatric Exam Psychiatric exam: Normal Affect, Normal Mood - Skin Skin Exam: Intact, Normal Color, Warm Assessment and Plan - Assessment and Plan (Free Text) Assessment: A/P: Patient is a 73 year old female with past medical history of fibromylagia, ureteral stenosis s/p ureteral dilation, chronic constipation, anxiety who presents today with constipation and requesting detox from methadone, xanax. Constipation -resolved -Could be due to chronic opioid use -Abdominal x ray showed large stool burden in the colon, non-obstructive bowel gas pattern -Patient received Fleet enema and magnesium citrate in the ED -GI, Dr Valdivia, on consult, help appreciated -Monitor bowel function continue meds: -Lactulose 30mg PO TID, Miralax 17gm daily, Colace 100mg PO daily Benzodiazapine and Methadone Dependence -Management per psych team Meds: -Methadone taper -Librium po q6h, Librium 25mg po q4h prn -Folic Acid 1 mg po daily -Atarax 25mg po q6h ptn -Multivitamins 1 tab po daily -Thiamine 100mg po daily -Trazadone 50mg po HS Urinary tract Infection -UA showed +2 leukesterase, 11 WBC -F/U urine culture -Continue Keflex 500mg PO Q6H Urinary Retention -resolved urethral stenosis - cystoscopy done in 2013 -urology, Dr. Talbot consulted, help appreciated -bladder scan in am showed 239cc urine -bladder scan prn -patient voided on her own -Flomax .4mg po daily Hemorrhoids -Anusol cream BID Malnutrition -Ensure Enlive TID -Multivitamins 1 tab PO daily Hx Fibromyalgia f/u B12, Folate, TIBC, Iron Medically stable, please re-consult as needed Discussed with Dr. Kulwinder Rivera, PGY2 <Criss Miramontes V - Last Filed: 04/13/18 16:21> Objective - Vital Signs/Intake and Output Vital Signs (last 24 hours): Temp Pulse Resp BP Pulse Ox 97.9 F 84 18 116/67 99 04/13/18 13:00 04/13/18 13:00 04/13/18 13:00 04/13/18 13:00 04/13/18 13:00 - Medications Medications: Current Medications Al Hydrox/Mg Hydrox/Simethicone (Maalox 30 Ml) 30 ml PO Q8 PRN PRN Reason: Indigestion / Heartburn Last Admin: 04/13/18 09:54 Dose: 30 ml Cephalexin Monohydrate (Keflex) 500 mg PO Q6H [facility]; Protocol Last Admin: 04/13/18 12:20 Dose: 500 mg Chlordiazepoxide (Librium) 25 mg PO Q4H PRN PRN Reason: Alcohol Withdrawal Last Admin: 04/13/18 13:08 Dose: 25 mg Chlordiazepoxide (Librium) 25 mg PO BID [facility]; Taper Stop: 04/14/18 19:59 Last Admin: 04/13/18 09:52 Dose: 25 mg Clonidine HCl (Catapres) 0.1 mg PO Q4H PRN PRN Reason: Symptoms of alcohol withdrawl Docusate Sodium (Colace) 100 mg PO DAILY [facility] Last Admin: 04/13/18 09:52 Dose: 100 mg Folic Acid (Folic Acid) 1 mg PO DAILY [facility] Last Admin: 04/13/18 10:31 Dose: Not Given Furosemide (Lasix) 40 mg PO DAILY [facility] Last Admin: 04/13/18 10:31 Dose: Not Given Hydrocortisone (Anusol-Hc) 0 gm [place] BID [facility] Last Admin: 04/13/18 09:54 Dose: 1 applic Hydroxyzine HCl (Atarax) 25 mg PO Q6H PRN PRN Reason: Anxiety Last Admin: 04/13/18 06:29 Dose: 25 mg Ibuprofen (Motrin Tab) 400 mg PO Q6H PRN PRN Reason: Pain, moderate (4-7) Lactulose (Enulose) 30 gm PO TID [facility] Last Admin: 04/13/18 14:31 Dose: Not Given Levetiracetam (Keppra) 250 mg PO BID [facility] Last Admin: 04/13/18 09:52 Dose: 250 mg Multivitamins (Hexavitamin) 1 tab PO DAILY [facility] Last Admin: 04/13/18 10:31 Dose: Not Given Polyethylene Glycol (Miralax) 17 gm PO DAILY [facility] Last Admin: 04/13/18 10:31 Dose: Not Given Tamsulosin HCl (Flomax) 0.4 mg PO DAILY [facility] Last Admin: 04/13/18 09:52 Dose: 0.4 mg Thiamine HCl (Vitamin B1 Tab) 100 mg PO DAILY [facility] Last Admin: 04/13/18 10:31 Dose: Not Given Trazodone HCl (Desyrel) 50 mg PO HS [facility] Last Admin: 04/12/18 21:25 Dose: 50 mg - Labs Labs: 04/12/18 08:17 04/12/18 08:17 Attending/Attestation - Attestation I have personally seen and examined this patient.: Yes I have fully participated in the care of the patient.: Yes I have reviewed all pertinent clinical information, including history, physical exam and plan: Yes Notes (Text): This is a late computer entry for 04/11/2018. Hospitalist cover Dr. Hay who is away until April 12. Medicine on consult for constipation This is a 73 year old female with past medical history of fibromylagia, ureteral stenosis s/p ureteral dilation, chronic constipation, anxiety who presents yesterday with constipation and requesting detox from methadone, xanax. Patient has had both bowel movements and noted urinary retentions during the day. Patient seen in the afternoon noted to have both bowel movement and urinary flow. Patient is familiar with Dr. Talbot will consult for urology. During my encounter with the patient her primary concern seems to be her abdominal pain noting to be in intense which all nursing at bedside noting that patient to receive medications to help with withdrawal at this time. Medicine to sign absent patient has had bowel movement and is having urinary flow please reconsult if needed thank you Assessment/plan Constipation -resolved -Could be due to chronic opioid use -Abdominal x ray showed large stool burden in the colon, non-obstructive bowel gas pattern -Patient received Fleet enema and magnesium citrate in the ED -GI, Dr Valdivia, on consult, help appreciated -Monitor bowel function continue meds: -Lactulose 30mg PO TID, Miralax 17gm daily, Colace 100mg PO daily Benzodiazapine and Methadone Dependence -Management per psych team Meds: -Methadone taper -Librium po q6h, Librium 25mg po q4h prn -Folic Acid 1 mg po daily -Atarax 25mg po q6h ptn -Multivitamins 1 tab po daily -Thiamine 100mg po daily -Trazadone 50mg po HS Urinary tract Infection -UA showed +2 leukesterase, 11 WBC Urine culture no growth -Continue Keflex 500mg PO Q6H Urinary Retention -resolved urethral stenosis - cystoscopy done in 2013 -urology, Dr. Talbot consulted, help appreciated -bladder scan in am showed 239cc urine -bladder scan prn -patient voided on her own -Flomax .4mg po daily Hemorrhoids -Anusol cream BID Malnutrition -Ensure Enlive TID -Multivitamins 1 tab PO daily Hx Fibromyalgia f/u B12, Folate, TIBC, Iron
[2018-04-11] MEDS: Multiple Vitamins Tab PO SCH (09:56)
[2018-04-11] MEDS: POLYETHYLENE GLYCOL 3350 17 GM/Dose PACKET PO SCH (09:58)
[2018-04-11] MEDS: Hydrocortisone 2.5% Rectal Cream(30 gm) PR SCH ×2 (10:00→17:25)
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
[2018-04-11 17:13] LABS: IRON 36 ug/dL (37-170)
[2018-04-11 17:22] LABS: TOTAL IRON BINDING CAPACITY 323 ug/dL (250-450)
[2018-04-11 18:03] LABS: FOLATE > 20.0 ng/mL
[2018-04-11] MEDS: Aluminum Hydroxide/Magnesium Hydroxide Susp (30 mL) PO PRN (18:31)
--- NOTE | 2018-04-11 19:06 | CARD ---
APPROVED REPORT Date of service: 04/10/2018 EKG Measurement Heart [id number] <Conclusion> Normal sinus rhythm Nonspecific ST abnormality Abnormal ECG
[2018-04-11 19:08] LABS: % IRON SATURATION 11 (20-55)
[2018-04-12 08:25] LABS: EOS # 0.1 K/uL (0.0-0.7); EOS % 4.2 % (0.0-4.0); HEMOGLOBIN 10.8 g/dL (11.0-16.0); LYMPH % 30.4 % (20.0-40.0); MEAN CELL VOLUME 87.8 fL (81.0-99.0); MEAN CORPUSCULAR HEMOGLOBIN 30.3 pg (27.0-31.0); MEAN CORPUSCULAR HGB CONC 34.5 g/dL (33.0-37.0); MEAN PLATELET VOLUME 7.3 fL (7.2-11.7); MONO # 0.3 K/uL (0.0-0.8); MONO % 9.7 % (0.0-10.0); NEUT # 1.9 K/uL (1.8-7.0); NEUT % 54.7 % (50.0-75.0); NRBC % 0.1 % (0.0-2.0); RBC 3.56 Mil/uL (3.80-5.20); RED CELL DISTRIBUTION WIDTH 12.9 % (11.5-14.5); WHITE BLOOD COUNT 3.4 K/uL (4.8-10.8)
[2018-04-12 08:48] LABS: ALB/GLOB RATIO 1.2 (1.0-2.1); ALBUMIN 3.6 g/dL (3.5-5.0); CALCIUM 9.4 mg/dl (8.6-10.4)
--- NOTE | 2018-04-12 11:35 | PCM.PYCHPN ---
Psychiatric Progress Note - Psychiatric Progress Note Patient seen today, length of contact: 15 min Patient Chief Complaint: i am still withdrawing Problems Identified/Issues Discussed: Patient seen and evaluated, chart reviewed and discussed with the nurse. Pt reports improvement in her mood, and irritability. She remained isolated and withdrawn. She reports some improvement in the withdrawal symptoms, but still reports nausea, cramps, back pain, joint pains headaches, and anxiety. Patient is compliant with medications and denies any side effects. Symptoms are improving but pt needs more time to stabilize. Support and psychoeducation given. Medication Change: Yes Medical Record Reviewed: Yes Mental Status Examination - Cognitive Function Orientation: Person, Place, Situation, Time Memory: Intact Attention: WNL Concentration: Poor Association: WNL Fund of Knowledge: Poor - Mood Mood: Depressed, Anxious - Affect Affect: Constricted - Speech Speech: Soft - Formal Thought Process Formal Thought Process: Loosening of associations - Suicidal Ideation Suicidal Ideation: No - Homicidal Ideation Homicidal Ideation: No Goal/Treatment Plan - Goal/Treatment Plan Need for Continued Stay: Severe depression anxiety, Severe functional impairment Progress Toward Problem(s) and Goals/Treatment Plan: Opioid withdrawal 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 Attend groups and activities Supportive therapy and psychoeducation [place] for abstinence CBT for relapse prevention Encourage MAT Refer to rehab or IOP, and self-help groups Teach healthy lifestyle methods, i.e. diet, exercise, meditation Smoking cessation with [place] Nicotine patch if needed
--- NOTE | 2018-04-12 12:36 | CP.PCM.PN ---
Subjective - Date & Time of Evaluation Date of Evaluation: 04/11/18 Time of Evaluation: 18:30 - Subjective Subjective: Pt was seen and evaluated,reason for consult HX of urethral stenosis, pt has voided several times while on unit,she was also straight cathed in er. she has no urinary complaints. bladder is not palpably distended. SUGGEST unless pt has new symtoms or problem refer for outpatient eval. Talbot Objective - Vital Signs/Intake and Output Vital Signs (last 24 hours): Temp Pulse Resp BP Pulse Ox 97.6 F 61 19 103/61 96 04/12/18 10:00 04/12/18 10:00 04/12/18 10:00 04/12/18 10:00 04/12/18 10:00 - Medications Medications: Current Medications Al Hydrox/Mg Hydrox/Simethicone (Maalox 30 Ml) 30 ml PO Q8 PRN PRN Reason: Indigestion / Heartburn Last Admin: 04/11/18 18:31 Dose: 30 ml Cephalexin Monohydrate (Keflex) 500 mg PO Q6H [facility]; Protocol Last Admin: 04/12/18 12:21 Dose: 500 mg Chlordiazepoxide (Librium) 25 mg PO Q4H PRN PRN Reason: Alcohol Withdrawal Chlordiazepoxide (Librium) 25 mg PO TID [facility]; Taper Stop: 04/14/18 19:59 Last Admin: 04/11/18 17:22 Dose: 25 mg Clonidine HCl (Catapres) 0.1 mg PO Q4H PRN PRN Reason: Symptoms of alcohol withdrawl Docusate Sodium (Colace) 100 mg PO DAILY [facility] Last Admin: 04/11/18 09:56 Dose: 100 mg Folic Acid (Folic Acid) 1 mg PO DAILY [facility] Last Admin: 04/11/18 09:56 Dose: 1 mg Furosemide (Lasix) 40 mg PO DAILY [facility] Last Admin: 04/11/18 09:58 Dose: 40 mg Hydrocortisone (Anusol-Hc) 0 gm [place] BID [facility]EREK Last Admin: 04/11/18 17:25 Dose: 1 applic Hydroxyzine HCl (Atarax) 25 mg PO Q6H PRN PRN Reason: Anxiety Last Admin: 04/12/18 02:21 Dose: 25 mg Ibuprofen (Motrin Tab) 400 mg PO Q6H PRN PRN Reason: Pain, moderate (4-7) Lactulose (Enulose) 30 gm PO TID [facility] Last Admin: 04/11/18 17:21 Dose: 30 gm Levetiracetam (Keppra) 250 mg PO BID [facility] Last Admin: 04/11/18 18:19 Dose: 250 mg Multivitamins (Hexavitamin) 1 tab PO DAILY [facility] Last Admin: 04/11/18 09:56 Dose: 1 tab Polyethylene Glycol (Miralax) 17 gm PO DAILY [facility] Last Admin: 04/11/18 09:58 Dose: 17 gm Tamsulosin HCl (Flomax) 0.4 mg PO DAILY [facility] Last Admin: 04/11/18 12:50 Dose: 0.4 mg Thiamine HCl (Vitamin B1 Tab) 100 mg PO DAILY [facility] Last Admin: 04/11/18 09:56 Dose: 100 mg Trazodone HCl (Desyrel) 50 mg PO HS [facility] Last Admin: 04/11/18 21:48 Dose: 50 mg - Labs Labs: 04/12/18 08:17 04/12/18 08:17
[2018-04-12] MEDS: Aluminum Hydroxide/Magnesium Hydroxide Susp (30 mL) PO PRN (13:18)
[2018-04-12] MEDS: Hydrocortisone 2.5% Rectal Cream(30 gm) PR SCH ×2 (17:47→21:16)
[2018-04-12] MEDS: Multiple Vitamins Tab PO SCH (21:17)
[2018-04-12] MEDS: POLYETHYLENE GLYCOL 3350 17 GM/Dose PACKET PO SCH (21:19)
[2018-04-13] MEDS: Hydrocortisone 2.5% Rectal Cream(30 gm) PR SCH ×2 (09:54→17:25)
[2018-04-13] MEDS: Aluminum Hydroxide/Magnesium Hydroxide Susp (30 mL) PO PRN (09:54)
[2018-04-13] MEDS: POLYETHYLENE GLYCOL 3350 17 GM/Dose PACKET PO SCH (10:31)
[2018-04-13] MEDS: Multiple Vitamins Tab PO SCH (10:31)
--- NOTE | 2018-04-13 12:33 | PCM.PYCHPN ---
Psychiatric Progress Note - Psychiatric Progress Note Patient seen today, length of contact: 15 min Patient Chief Complaint: "I'm not well at all, my anxiety is good but my stomach hurts" Problems Identified/Issues Discussed: The pt is seen, chart reviewed, case discussed with staff. The pt is compliant with medications and reports no side-effects. Symptoms are improving but needs more time to stabilize. Pt is in bed most of the time Support given, psycho-education provided. After care discussed. I also met and brought Dr. womack who is her PCP How to stay away from methadone, other opiates and benzos discussed. She doesn't have much insight and even heard telling her daughter not to discard anything yet (??) _ warned about the risks Medication Change: Yes (detox changes daily) Medical Record Reviewed: Yes Mental Status Examination - Cognitive Function Orientation: Person, Place, Situation, Time Memory: Intact Attention: WNL Concentration: Poor Association: WNL Fund of Knowledge: Poor - Mood Mood: Depressed, Anxious - Affect Affect: Constricted - Speech Speech: Soft - Formal Thought Process Formal Thought Process: Loosening of associations - Suicidal Ideation Suicidal Ideation: No - Homicidal Ideation Homicidal Ideation: No Goal/Treatment Plan - Goal/Treatment Plan Need for Continued Stay: Severe depression anxiety, Severe functional impairment Progress Toward Problem(s) and Goals/Treatment Plan: Taper with methadone and librium Keppra for potential seizures Gabapentin for augmentation if needed As needed medications All risks, benefits and alternatives of the meds discussed, and the pt agreed and understood. Attend groups and activities Supportive therapy and psychoeducation [place] for abstinence CBT for relapse prevention Encourage MAT Refer to rehab or IOP, and self-help groups Teach healthy lifestyle methods, i.e. diet, exercise, meditation Smoking cessation with [place] Nicotine patch if needed Estimated Date of D/C: 04/14/18
--- NOTE | 2018-04-13 21:54 | CON ---
DATE: 04/12/2018 TIME: Approximately 6 p.m. REASON FOR CONSULTATION: History of urethral stenosis. HISTORY OF PRESENT ILLNESS: The patient has no urinary complaints at present. She was admitted for detox from methadone and diazepam. In the emergency room, she was straight-catheterized to provide urinary specimen. There was no trouble in catheterizing. The patient has a history of having urethral dilatation in the year 2013. She is not having any trouble urinating and is not complaining of bladder distention. REVIEW OF SYSTEMS: RESPIRATORY SYSTEM: The patient has no respiratory complaints. GASTROINTESTINAL SYSTEM: The patient is complaining of constipation. GENITOURINARY SYSTEM: The patient has no urinary complaints. ORTHOPEDIC HISTORY: Noncontributory. PSYCHIATRIC HISTORY: Present. The patient has a history of addiction to methadone and is admitted to the detox unit. GYNECOLOGICAL HISTORY: Noncontributory. NEUROLOGICAL HISTORY: Noncontributory. PHYSICAL EXAMINATION: GENERAL: The patient is awake, alert, oriented x3. HEAD, EARS, EYES, NOSE, AND THROAT: Within normal limits. NECK: Supple. There are no bruits or masses. CHEST: Clear bilaterally. There are no rales or rhonchi. ABDOMEN: The bladder is not palpably distended. GENITOURINARY: The patient refuses a vaginal examination. EXTREMITIES: Normal. ASSESSMENT AND PLAN: I reviewed the laboratory and x-ray data. My impression is no evidence of urinary retention. Since the patient is asymptomatic, I see no reason to pursue any urological workup at this time. If the patient does have difficulty in urinating, please notify me. Jeff Talbot MD
[2018-04-14 06:33] VITALS: O2SAT 97
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
[2018-04-14] MEDS ORDERED: Potassium Chloride 20 mEq ER Tab PO ONE (09:00)
[2018-04-14] MEDS: Hydrocortisone 2.5% Rectal Cream(30 gm) PR SCH (09:32)
[2018-04-14] MEDS: Multiple Vitamins Tab PO SCH (09:44)
[2018-04-14 09:45] VITALS: BP 100/62
[2018-04-14] MEDS: POLYETHYLENE GLYCOL 3350 17 GM/Dose PACKET PO SCH (09:45)
[2018-04-14 11:28] VITALS: PULSE 66; RESP 20
[2018-04-14 11:40] VITALS: TEMP 97.7
== END 2018-04-14 10:45 | disposition home or self-care (01) | DRG 895 ==
LOC: C.ER 10:36 → C.7D 17:25
PROVIDERS: ADMIT Psychiatry & Neurology Psychiatry; ATTEND Psychiatry & Neurology Psychiatry
PROC: HZ2ZZZZ Detoxification Services for Substance Abuse Treatment (ICD-10-PCS; principal; 2018-04-10)
PROC: HZ46ZZZ Group Counseling for Substance Abuse Treatment, Psychoeducation (ICD-10-PCS; 2018-04-10)
PROC: HZ81ZZZ Medication Management for Substance Abuse Treatment, Methadone Maintenance (ICD-10-PCS; 2018-04-10)
PROC: GZ3ZZZZ Medication Management (ICD-10-PCS; 2018-04-10)
PROC: HZ59ZZZ Individual Psychotherapy for Substance Abuse Treatment, Supportive (ICD-10-PCS; 2018-04-10)
DX: F11.23 Opioid dependence with withdrawal (principal); F13.20 Sedative, hypnotic or anxiolytic dependence, uncomplicated; F32.9 Major depressive disorder, single episode, unspecified; E46 Unspecified protein-calorie malnutrition; N39.0 Urinary tract infection, site not specified; F41.9 Anxiety disorder, unspecified; G89.29 Other chronic pain; K59.09 Other constipation; I50.9 Heart failure, unspecified; K64.4 Residual hemorrhoidal skin tags; M41.9 Scoliosis, unspecified; M79.7 Fibromyalgia; Z87.891 Personal history of nicotine dependence; Z91.410 Personal history of adult physical and sexual abuse

== ENCOUNTER 2018-10-08 18:11 | Inpatient (IN) | payer MEDICARE, BC ==
[2018-10-08 18:26] VITALS: BMI 19.5
--- NOTE | 2018-10-08 19:05 | C.PDOC ---
History Of Present Illness 73 yr old F w/ hx of fibromyalgia, anxiety, methadone program p/w constipation. She notes constipation x3 months, intermittently. She notes she tried to have a bowel movement today but noticed that her rectum was so swollen that she could not have a full BM. She notes intermittently taking her methadone for her program, and notes diffuse weakness. She denies any fall or trauma. She notes only constipation type abdominal pain. No fever, chills or night sweats. No dark or bloody stool. No chest pain. No SOB. She notes trying suppositories months ago for the constipation but has not taken any suppositories recently. She denies any dark or bloody stool. No other complaints. Time Seen by Provider: 10/08/18 18:24 Chief Complaint (Nursing): GI Problem Past Medical History Vital Signs: Last Vital Signs Temp 97.7 F 10/08/18 18:23 Pulse 105 H 10/08/18 18:23 Resp 16 10/08/18 18:23 BP 117/59 L 10/08/18 18:23 Pulse Ox 100 10/08/18 18:23 - Medical History PMH: Anxiety, CHF, Fibromyalgia Denies: Diabetes (Patient denied), Hepatitis (Patient denied), HIV (Patient denied), HTN (Patient denied), Seizures (Patient denied), Sexually Transmitted Disease (Patient denied) - [facility] Procedures CATARAC PHACOEMULS/ASPIR (06/28/13) CYSTOMETROGRAM (10/27/13) DETOXIFICATION SERVICES FOR SUBSTANCE ABUSE TREATMENT (04/10/18) GROUP PL[employer] WIRE CHIEF FOR SUBSTANCE ABUSE TREATMENT, PSYCHOEDUCATION (04/10/18) INDIV PSYCHOTHERAPY FOR SUBSTANCE ABUSE TREATMENT, SUPPORT (04/10/18) INSERT LENS AT CATAR EXT (06/28/13) MEDICATION MANAGEMENT (04/10/18) MEDS MGMT FOR SUBSTANCE ABUSE TREATMENT, METHADONE MAINT (04/10/18) URETHRAL DILATION (10/27/13) Family History: States: Unknown Family Hx - Social History Hx Tobacco Use: No Hx Alcohol Use: No Hx Substance Use: Yes - Immunization History Hx Tetanus Toxoid Vaccination: No Hx Influenza Vaccination: No Hx Pneumococcal Vaccination: No Review Of Systems Constitutional: Positive for: Weakness. Negative for: Fever, Chills, Sweats, Malaise, Weight loss Eyes: Negative for: Pain, Vision Change, Conjunctivae Inflammation ENT: Negative for: Ear Pain, Ear Discharge, Nose Pain, Nose Congestion, Mouth Pain, Mouth Swelling Cardiovascular: Negative for: Chest Pain, Palpitations, Orthopnea, Edema, Light Headedness Respiratory: Negative for: Cough, Shortness of Breath, Hemoptysis Gastrointestinal: Positive for: Constipation. Negative for: Nausea, Vomiting, Abdominal Pain Genitourinary: Negative for: Dysuria, Frequency, Incontinence, Hematuria, Vaginal Discharge, Vaginal Bleeding Musculoskeletal: Negative for: Neck Pain, Shoulder Pain, Back Pain, Hand Pain, Leg Pain Skin: Negative for: Rash, Lesions Neurological: Negative for: Weakness, Numbness, Incoordination, Change in Speech, Altered Mental Status, Headache Psych: Negative for: Anxiety, Depression, Psychosis, Suicidal ideation Physical Exam - Physical Exam Appears: Well, Non-toxic, No Acute Distress Skin: Normal Color, Warm Head: Atraumatic, Normacephalic Eye(s): bilateral: Normal Inspection, PERRL, EOMI Ear(s): Bilateral: Normal Nose: Normal, No Flaring, No Discharge Oral Mucosa: Moist Tongue: Normal Appearing Lips: Normal Appearing Teeth: Normal Dentition Gingiva: Normal Appearing Throat: Normal, No Erythema, No Exudate, No Drooling, No Mass Neck: Normal, Normal ROM, No Midline Cervical Tenderness, Supple, Other (no meningeal signs) Chest: Symmetrical, No Deformity, No Tenderness Cardiovascular: Rhythm Regular, No Rhythm Irregular, No Friction Rub, No Murmur, No JVD Respiratory: Normal Breath Sounds, No Decreased Breath Sounds, No Accessory Muscle Use, No Rales, No Rhonchi Gastrointestinal/Abdominal: Normal Exam, No Bowel Sounds, Soft, No Tenderness, No Organomegaly, No Mass, No Distention, No Guarding Rectal: Rectal Tone (normal), No Heme Positive, No Maroon Stool, No Melena, No Blood Streaked Stool, Hemorrhoids (external hemorrhoids, 3oclock, non- thrombosed), No Mass, No Tenderness, Other (no appreciable hard stool noted post BM) Back: Normal Inspection, No CVA Tenderness, No Vertebral Tenderness Extremity: Normal ROM, No Tenderness Extremity: Bilateral: Atraumatic Neurological/Psych: Oriented x3, Normal Speech, Normal Cognition, Normal Motor Gait: Steady ED Course And Treatment - Laboratory Results Result Diagrams: 10/08/18 19:14 10/08/18 19:14 ECG: Interpreted By Me, Viewed By Me ECG Rhythm: Sinus Rhythm ECG Interpretation: Normal Interpretation Of ECG: No STEMI. Rate From EC O2 Sat by Pulse Oximetry: 100 Medical Decision Making Medical Decision Makin yr old F p/w constipation, rectal swelling. External hemorrhoid noted on exam w/ out appreciable stool in vault s/p BM bedside. No dark or bloody stool. No chest pain or shortness of breath. Non septic appearing, likely constipation w/ associated abdominal pain. Likely constipation secondary to painful hemorrhoids and difficulty stooling. 2000 pt family endorsed fall to Dr. Whitaker: pt denies any fall. Will CT given subjective weakness and abdominal pain. labs otherwise largely unremarkable. Listed hx of CHF, no indication for 2L bolus of fluids given stable vitals, mildly elevated WBC and mildly elevated lactic. 2230 CT w/ enterocolitis, Augmentin ordered given Cipro and concominant long QT possibility given pts home meds. Disposition - Disposition Disposition: HOSPITALIZED Disposition Time: 20:01 Condition: GOOD - Clinical Impression Clinical Impression: Weakness, Constipation
[2018-10-08 19:08] LABS: VENOUS BLOOD GAS BASE EXCESS 6.1 mmol/L (0.0-2.0); VENOUS BLOOD GAS PCO2 49 mmHg (40-60); VENOUS BLOOD GAS PO2 17 mm/Hg (30-55); VENOUS BLOOD PH 7.42 (7.32-7.43)
[2018-10-08 19:18] LABS: BASO # 0.1 K/uL (0.0-0.2); BASO % 0.7 % (0.0-2.0); EOS % 0.1 % (0.0-4.0); LYMPH # 0.4 K/uL (1.0-4.3); MEAN CELL VOLUME 90.9 fL (81.0-99.0); MEAN CORPUSCULAR HEMOGLOBIN 29.8 pg (27.0-31.0); MEAN CORPUSCULAR HGB CONC 32.8 g/dL (33.0-37.0); MEAN PLATELET VOLUME 7.7 fL (7.2-11.7); MONO # 0.5 K/uL (0.0-0.8); MONO % 3.9 % (0.0-10.0); NEUT # 11.7 K/uL (1.8-7.0); NEUT % 92.3 % (50.0-75.0); PLATELET COUNT 269 K/uL (130-400); RBC 4.69 Mil/uL (3.80-5.20); RED CELL DISTRIBUTION WIDTH 13.4 % (11.5-14.5); WHITE BLOOD COUNT 12.7 K/uL (4.8-10.8)
[2018-10-08 19:30] LABS: ALB/GLOB RATIO 1.5 (1.0-2.1); ALBUMIN 4.8 g/dL (3.5-5.0); CALCIUM 10.1 mg/dl (8.6-10.4)
[2018-10-08 19:48] LABS: URINE BILIRUBIN NEGATIVE (NEGATIVE); URINE BLOOD NEGATIVE (NEGATIVE); URINE CLARITY Clear (Clear); URINE COLOR Yellow (YELLOW); URINE GLUCOSE (UA) NORMAL (Normal); URINE LEUKOCYTE ESTERASE NEG Leu/uL (Negative); URINE PROTEIN NEGATIVE (NEGATIVE); URINE UROBILINOGEN NORMAL mg/dL (0.2-1.0)
[2018-10-08 20:08] LABS: BANDS 6 % (0-2); BASOPHIL 1 % (0-2); LYMPHOCYTE 6 % (20-40); MONOCYTE 5 % (0-10); NEUTROPHIL 81 % (50-75); REACTIVE LYMPHOCYTES 1 % (0-0); TOTAL CELLS COUNTED 100
[2018-10-08 20:09] LABS: PLATELET ESTIMATE NORMAL (NORMAL)
[2018-10-08] MEDS ORDERED: Home Med 1 UNIT (Zolpidem [Ambien] 10 MG) PO SCH (22:00)
[2018-10-08] MEDS ORDERED: Amoxicillin-Clav 875-125 mg Tab PO STA ×2 (22:33→23:00)
[2018-10-09] MEDS: Multiple Vitamins Tab PO SCH (11:06)
[2018-10-09] MEDS: Hydrocortisone 2.5% Rectal Cream(30 gm) PR SCH ×2 (11:14→18:01)
--- NOTE | 2018-10-09 11:32 | CT ---
Date of service: 10/08/2018 PROCEDURE: CT Cervical Spine without contrast HISTORY: fall COMPARISON: None available. TECHNIQUE: Axial computed tomography images were obtained of the cervical spine without the use of intravenous contrast. Coronal and sagittal reformatted images were created and reviewed. Radiation dose: Total exam DLP = 251.26 mGy-cm. This CT exam was performed using one or more of the following dose reduction techniques: Automated exposure control, adjustment of the mA and/or kV according to patient size, and/or use of iterative reconstruction technique. FINDINGS: VERTEBRAE: Vertebral bodies maintained in height. Normal alignment is maintained. The atlantoaxial articulation and odontoid process are intact. DISCS/SPINAL CANAL/NEURAL FORAMINA: There is narrowing of the C5-6 intervertebral disc space. The remaining disc spaces are maintained in height. There is moderate bilateral neural foraminal stenosis at C5-6. There is no significant central spinal stenosis. PARASPINAL SOFT TISSUES: Unremarkable. OTHER FINDINGS: None. IMPRESSION: No fracture/dislocation. Degenerative disc disease C5-6 with moderate bilateral C5-6 neural foraminal stenosis. The preliminary findings for this examination were reported by [facility] at 9:57 p.m. on 10/08/2018. There is concurrence of this report with the preliminary findings.
--- NOTE | 2018-10-09 13:21 | CT ---
Date of service: 10/08/2018 PROCEDURE: CT HEAD WITHOUT CONTRAST. HISTORY: fall COMPARISON: None available. TECHNIQUE: Axial computed tomography images were obtained through the head/brain without intravenous contrast. Radiation dose: Total exam DLP = 1304.67 mGy-cm. This CT exam was performed using one or more of the following dose reduction techniques: Automated exposure control, adjustment of the mA and/or kV according to patient size, and/or use of iterative reconstruction technique. FINDINGS: HEMORRHAGE: No intracranial hemorrhage. BRAIN: No mass effect or edema. Mild diffuse age-appropriate atrophy. Minimal periventricular white matter lucency consistent with chronic microvascular white matter ischemic change. VENTRICLES: Unremarkable. No hydrocephalus. CALVARIUM: Unremarkable. PARANASAL SINUSES: Unremarkable as visualized. No significant inflammatory changes. MASTOID AIR CELLS: Unremarkable as visualized. No inflammatory changes. OTHER FINDINGS: None. IMPRESSION: No acute intracranial hemorrhage. The preliminary findings for this examination were reported by [facility] at 9:20 p.m. on 10/08/2018. There is concurrence of this report with the preliminary findings.
--- NOTE | 2018-10-09 14:12 | CT ---
Date of service: 10/08/2018 PROCEDURE: CT Abdomen and Pelvis without intravenous contrast HISTORY: abd pain COMPARISON: 12/25/2017 TECHNIQUE: Without contrast.. Contrast dose: 0 Radiation dose: Total exam DLP = 208.01 mGy-cm. This CT exam was performed using one or more of the following dose reduction techniques: Automated exposure control, adjustment of the mA and/or kV according to patient size, and/or use of iterative reconstruction technique. FINDINGS: LOWER THORAX: No infiltrate/effusion. Small hiatal hernia with air/fluid level. LIVER: Unremarkable. No gross lesion or ductal dilatation. GALLBLADDER AND BILE DUCTS: Unremarkable. PANCREAS: Unremarkable. No gross lesion or ductal dilatation. SPLEEN: Unremarkable. ADRENALS: Unremarkable. No mass. KIDNEYS AND URETERS: Unremarkable. No hydronephrosis. No solid mass. VASCULATURE: Unremarkable. No aortic aneurysm. There is atherosclerotic calcification of the abdominal aorta. BOWEL: There is no bowel obstruction. There is fecal distention of the rectum with thickening of the rectal wall most likely reflecting stercoral colitis. There is no generalized retained feces elsewhere. No other abnormal bowel loops are identified. APPENDIX: Not identified. No secondary findings. PERITONEUM: No ascites or pneumoperitoneum. There is an incidental small right Bochdalek's hernia containing only retroperitoneal fat. LYMPH NODES: Unremarkable. No enlarged lymph nodes. BLADDER: Unremarkable. REPRODUCTIVE: Unremarkable. BONES: No acute fracture. OTHER FINDINGS: None. IMPRESSION: Retained rectal stool and thickened wall, likely due to stercoral colitis. No other acute abnormality. Small hiatal hernia. Incidental Bochdalek's hernia. The preliminary findings for this examination were reported by [facility] at 9:57 p.m. on 10/08/2018. There is discordance of this report with the preliminary findings. There is no generalized mural thickening of the colon and the findings in this case are not felt to reflect diffuse enterocolitis and proctitis.
[2018-10-09] MEDS: Enoxaparin 40 mg Syringe SC SCH (17:41)
--- NOTE | 2018-10-10 06:37 | HP ---
HISTORY OF PRESENT ILLNESS: The patient is in the hospital with chief complaint of weakness, abdominal pain, constipation, failure to thrive. The patient has chronic pain, history of anxiety, history of chronic constipation, on multiple trials of different laxatives with no success. The patient has poor eating and poor drinking. PHYSICAL EXAMINATION: GENERAL: The patient is awake, alert, and oriented, . HEENT: Within normal limits. NECK: Supple. CHEST: Symmetrical. HEART: Regular. ABDOMEN: Soft. EXTREMITIES: No edema. IMPRESSION AND PLAN: The patient has constipation, failure to thrive, and dehydration. The patient get bed rest, supportive care. Edd Whitaker MD
--- NOTE | 2018-10-10 08:45 | CP.PCM.PN ---
Subjective - Date & Time of Evaluation Date of Evaluation: 10/10/18 Time of Evaluation: 08:45 - Subjective Subjective: Medicine Consult Note - Dr Whitaker's service Patient seen and examined at the bedside. Per nursing no acute events overnight. Patient was admitted for intense rectal pain and constipation. She reports having a bowel movement since receiving fleet enema. States that she has not been taking methadone. Offers no other complaints at this time. Objective - Vital Signs/Intake and Output Vital Signs (last 24 hours): Temp Pulse Resp BP Pulse Ox 96.6 F L 80 18 98/56 L 98 10/10/18 00:24 10/10/18 00:24 10/10/18 00:24 10/10/18 00:24 10/10/18 00:24 Intake and Output: 10/10/18 10/10/18 06:59 18:59 Intake Total 350 120 Balance 350 120 - Medications Medications: Current Medications Alprazolam (Xanax) 2 mg PO TID [facility] Last Admin: 10/09/18 17:41 Dose: 2 mg Bisacodyl (Dulcolax) 10 mg [place] DAILY [facility] Docusate Sodium (Colace) 100 mg PO DAILY [facility] Last Admin: 10/09/18 11:07 Dose: 100 mg Enoxaparin Sodium (Lovenox) 40 mg SC DAILY [facility] Last Admin: 10/09/18 17:41 Dose: 40 mg Furosemide (Lasix) 40 mg PO DAILY [facility] Last Admin: 10/09/18 11:13 Dose: 40 mg Hydrocortisone (Anusol-Hc) 1 gm [place] BID [facility] Last Admin: 10/09/18 18:01 Dose: 1 applic Hydroxyzine HCl (Atarax) 25 mg PO BID PRN PRN Reason: Anxiety Last Admin: 10/08/18 22:31 Dose: 25 mg Levetiracetam (Keppra) 250 mg PO BID [facility] Last Admin: 10/09/18 17:41 Dose: 250 mg Methadone HCl (Methadone) 25 mg PO DAILY [facility] Last Admin: 10/09/18 11:06 Dose: Not Given Multivitamins (Hexavitamin) 1 tab PO DAILY [facility] Last Admin: 10/09/18 11:06 Dose: 1 tab Tamsulosin HCl (Flomax) 0.4 mg PO DAILY [facility] Last Admin: 10/09/18 11:05 Dose: 0.4 mg Trazodone HCl (Desyrel) 50 mg PO HS [facility] Last Admin: 10/09/18 21:25 Dose: 50 mg Zolpidem Tartrate (Ambien) 5 mg PO HS [facility] Last Admin: 10/09/18 21:25 Dose: 5 mg - Labs Labs: 10/08/18 19:14 10/08/18 19:14 - Constitutional Appears: Non-toxic, No Acute Distress, Older Than Stated Age, Chronically Ill - Head Exam Head Exam: ATRAUMATIC, NORMAL INSPECTION - Eye Exam Eye Exam: EOMI, Normal appearance - ENT Exam ENT Exam: Mucous Membranes Moist - Respiratory Exam Respiratory Exam: Clear to Ausculation Bilateral, NORMAL BREATHING PATTERN. absent: Rales, Rhonchi, Wheezes - Cardiovascular Exam Cardiovascular Exam: REGULAR RHYTHM, +S1, +S2 - GI/Abdominal Exam GI & Abdominal Exam: Soft. absent: Guarding, Rigid, Tenderness - Extremities Exam Extremities Exam: absent: Calf Tenderness - Neurological Exam Neurological Exam: Alert, Awake Assessment and Plan - Assessment and Plan (Free Text) Assessment: Chronic constipation -Stable, afebrile -CT abd/pelvis showed Retained rectal stool and thickened wall, likely due to stercoral colitis. No other acute abnormality. Small hiatal hernia. Incidental Bochdalek's hernia (see full report) -Continue to monitor bowel function -Reglan 10mg Q6H [facility] -GI on consult, Dr Valdivia, help appreciated Elevated lactic acid -Lactate trending up -Started on IV fluid hydration -F/U repeat lactate History of opioid dependence and methadone use -Patient states that she has not been using methadone -Follow up [facility] External hemorrhoids -Anusol 1gm [place] BID Anxiety -Xanax 2mg PO TID -Atarax 25mg PO BID prn, Trazodone 50mg PO HS, Ambien 5mg PO HS History of Urinary retention -Flomax 0.4mg PO daily GI/DVT ppx: NO GI ppx indicated at this time Lovenox 40mg SC daily Plan discussed with Dr Julianne Finley DO PGY-2
[2018-10-10 09:30] LABS: BASO % 0.3 % (0.0-2.0); EOS # 0.1 K/uL (0.0-0.7); EOS % 0.9 % (0.0-4.0); LYMPH % 13.8 % (20.0-40.0); MEAN CELL VOLUME 90.7 fL (81.0-99.0); MEAN CORPUSCULAR HEMOGLOBIN 30.7 pg (27.0-31.0); MEAN CORPUSCULAR HGB CONC 33.8 g/dL (33.0-37.0); MEAN PLATELET VOLUME 7.7 fL (7.2-11.7); MONO # 0.6 K/uL (0.0-0.8); MONO % 8.7 % (0.0-10.0); NEUT # 5.4 K/uL (1.8-7.0); NEUT % 76.3 % (50.0-75.0); RBC 3.66 Mil/uL (3.80-5.20); RED CELL DISTRIBUTION WIDTH 13.3 % (11.5-14.5)
[2018-10-10 09:33] LABS: HEMOGLOBIN 11.2 g/dL (11.0-16.0)
[2018-10-10 09:41] LABS: ALB/GLOB RATIO 1.6 (1.0-2.1); ALBUMIN 3.7 g/dL (3.5-5.0); ALT/SGPT < 6 U/L (9-52); AST/SGOT 30 U/L (14-36); BLOOD UREA NITROGEN 28 mg/dL (7-17); CALCIUM 8.9 mg/dl (8.6-10.4); GFR NON-AFRICAN AMERICAN 34
[2018-10-10] MEDS ORDERED: Potassium Chloride 20 mEq ER Tab PO ONE (10:44)
[2018-10-10] MEDS: Hydrocortisone 2.5% Rectal Cream(30 gm) PR SCH ×2 (11:00→17:44)
[2018-10-10] MEDS ORDERED: Sodium Chloride 0.9% 1,000 ML IV SCH (11:00)
[2018-10-10] MEDS: Multiple Vitamins Tab PO SCH (11:26)
[2018-10-10] MEDS: Enoxaparin 40 mg Syringe SC SCH (11:26)
[2018-10-10] MEDS: Sodium Chloride 0.9% 1,000 ML IV SCH ×2 (11:40→22:03)
[2018-10-10] MEDS ORDERED: Peg-Electrolyte Oral Soln 4L (Golytely) PO ONE (13:00)
[2018-10-10] MEDS ORDERED: Bisacodyl 5mg EC Tab PO ONE (17:00)
--- NOTE | 2018-10-10 17:36 | PN ---
DATE: 10/10/2018 LOCATION: 365 bed B SUBJECTIVE: This 73-year-old female was seen and examined in rounds initially for GI consultation on 10/09/2018 as requested by the admitting medical team, reexamined again today with persistent complaint of abdominal pain, lack of bowel movement habits. No reported actual chest pain, palpitations, or significant shortness of breath. The entire chart is reviewed and today's lab result showed low hematocrit with potassium 3.2, CO2 content 37. BUN 28, creatinine 1.5, blood glucose level 143 with lactic acid 3.2, magnesium 2.4. Official report of CAT scan of the abdomen and pelvis is seen. PHYSICAL EXAMINATION: GENERAL: A 73-year-old female. VITAL SIGNS: Afebrile with pulse of 82, respiratory rate 18-20, and blood pressure of 104/62. HEENT: Dry mucous membrane. Nonicteric sclerae. LUNGS: Few scattered crepitation. Decreased air entry at bases. HEART: Positive S1 and S2. ABDOMEN: Soft with mild generalized tenderness. No mass or organomegaly. No rebound tenderness or guarding, but abdominal distention. RECTAL: The patient refused. EXTREMITIES: Without significant clubbing, cyanosis or edema. NEUROLOGIC: No reported new neurological deficits, sensory or motor. IMPRESSION: 1. Mild drop of hematocrit with change of bowel movement habit and severe constipation of unclear etiology, rule out low gastrointestinal tract occult malignancy. 2. Past medical history including fibromyalgia and anxiety with congestive heart failure. 3. Electrolyte imbalance. 4. Possible enterocolitis. SUGGESTIONS: 1. Agree with your plan. 2. The patient to be scheduled for colonoscopy at a.m. after adequate preparation. 3. Correct any underlying coagulopathy. 4. Cancer markers. 5. Further recommendation to follow. Vanessa Castaneda MD
[2018-10-10] MEDS ORDERED: Aluminum Hydroxide/Magnesium Hydroxide Susp (30 mL) PO ONE (20:42)
--- NOTE | 2018-10-11 01:33 | CARD ---
APPROVED REPORT Date of service: 10/08/2018 EKG Measurement Heart [id number] <Conclusion> Normal sinus rhythm Left axis deviation Abnormal ECG
[2018-10-11] MEDS: Sodium Chloride 0.9% 1,000 ML IV SCH ×3 (02:50→21:50)
[2018-10-11 06:19] LABS: BASO % 0.5 % (0.0-2.0); EOS # 0.1 K/uL (0.0-0.7); EOS % 1.8 % (0.0-4.0); HEMOGLOBIN 9.6 g/dL (11.0-16.0); LYMPH # 1.1 K/uL (1.0-4.3); LYMPH % 19.9 % (20.0-40.0); MEAN CORPUSCULAR HEMOGLOBIN 30.7 pg (27.0-31.0); MEAN CORPUSCULAR HGB CONC 33.7 g/dL (33.0-37.0); MEAN PLATELET VOLUME 7.7 fL (7.2-11.7); MONO # 0.4 K/uL (0.0-0.8); MONO % 6.5 % (0.0-10.0); NEUT # 3.9 K/uL (1.8-7.0); NEUT % 71.3 % (50.0-75.0); NRBC % 0.1 % (0.0-2.0); RBC 3.11 Mil/uL (3.80-5.20); RED CELL DISTRIBUTION WIDTH 12.9 % (11.5-14.5); WHITE BLOOD COUNT 5.5 K/uL (4.8-10.8)
[2018-10-11 06:37] LABS: ALB/GLOB RATIO 1.3 (1.0-2.1); ALBUMIN 2.9 g/dL (3.5-5.0); ALT/SGPT 26 U/L (9-52); AST/SGOT 34 U/L (14-36); BLOOD UREA NITROGEN 19 mg/dL (7-17); CALCIUM 8.2 mg/dl (8.6-10.4); GFR NON-AFRICAN AMERICAN 55
--- NOTE | 2018-10-11 09:07 | CP.PCM.PN ---
"Subjective - Date & Time of Evaluation Date of Evaluation: 10/11/18 Time of Evaluation: 09:00 - Subjective Subjective: Patient seen and examined at bedside. No overnight events reported. patient still reports rectal pain. She stated that she is having too many bowel movements. She denies any abdominal pain or fever. She denies any melena or blood in stool. She denies any nausea, vomiting, or urinary symptoms. Objective - Vital Signs/Intake and Output Vital Signs (last 24 hours): Temp Pulse Resp BP Pulse Ox 97.6 F 69 20 119/68 96 10/11/18 07:00 10/11/18 07:00 10/11/18 07:00 10/11/18 07:00 10/11/18 07:00 Intake and Output: 10/11/18 10/11/18 06:59 18:59 Intake Total 1900 Output Total 2 Balance 1898 - Medications Medications: Current Medications Alprazolam (Xanax) 2 mg PO TID [facility] Last Admin: 10/10/18 17:37 Dose: 2 mg Bisacodyl (Dulcolax) 10 mg [place] DAILY [facility] Last Admin: 10/10/18 11:13 Dose: Not Given Docusate Sodium (Colace) 100 mg PO DAILY [facility] Last Admin: 10/10/18 11:26 Dose: 100 mg Enoxaparin Sodium (Lovenox) 40 mg SC DAILY [facility] Last Admin: 10/10/18 11:26 Dose: 40 mg Furosemide (Lasix) 40 mg PO DAILY [facility] Last Admin: 10/10/18 11:28 Dose: Not Given Hydrocortisone (Anusol-Hc) 1 gm [place] BID [facility] Last Admin: 10/10/18 17:44 Dose: 1 applic Hydroxyzine HCl (Atarax) 25 mg PO BID PRN PRN Reason: Anxiety Last Admin: 10/08/18 22:31 Dose: 25 mg Sodium Chloride (Sodium Chloride 0.9%) 1,000 mls @ 100 mls/hr IV .Q10H [facility] Last Admin: 10/11/18 07:15 Dose: Not Given Potassium Chloride (Potassium Chloride 20 Meq/100 Ml) 20 meq in 100 mls @ 50 m ls/hr IVPB Q30M [facility] Stop: 10/11/18 10:44 Levetiracetam (Keppra) 250 mg PO BID [facility] Last Admin: 10/10/18 17:37 Dose: 250 mg Metoclopramide HCl (Reglan) 10 mg IVP Q6H [facility] Last Admin: 10/11/18 06:30 Dose: 10 mg Multivitamins (Hexavitamin) 1 tab PO DAILY [facility] Last Admin: 10/10/18 11:26 Dose: 1 tab Tamsulosin HCl (Flomax) 0.4 mg PO DAILY [facility] Last Admin: 10/10/18 11:28 Dose: 0.4 mg Trazodone HCl (Desyrel) 50 mg PO [facility] Last Admin: 10/10/18 21:20 Dose: 50 mg Zolpidem Tartrate (Ambien) 5 mg PO [facility] Last Admin: 10/10/18 21:20 Dose: 5 mg - Labs Labs: 10/11/18 06:08 10/11/18 06:08 - Constitutional Appears: Non-toxic, No Acute Distress, Chronically Ill - Head Exam Head Exam: ATRAUMATIC, NORMAL INSPECTION, NORMOCEPHALIC - Eye Exam Eye Exam: EOMI, Normal appearance. absent: Scleral icterus - ENT Exam ENT Exam: Mucous Membranes Moist - Respiratory Exam Respiratory Exam: Clear to Ausculation Bilateral, NORMAL BREATHING PATTERN. absent: Accessory Muscle Use - Cardiovascular Exam Cardiovascular Exam: RRR, +S1, +S2 - GI/Abdominal Exam GI & Abdominal Exam: Soft, Normal Bowel Sounds. absent: Tenderness - Extremities Exam Extremities Exam: absent: Pedal Edema - Neurological Exam Neurological Exam: Awake. absent: Alert (Lethargic) - Psychiatric Exam Psychiatric exam: Normal Mood. absent: Normal Affect (Restricted ) - Skin Skin Exam: Dry, Intact, Normal Color, Warm Assessment and Plan - Assessment and Plan (Free Text) Assessment: 73 year old female with PMHx of Opiod dependence on MEthadone, external hemorrhoids, Anxiety, urinary retention, and chronic constipation admitted for evaluation and treatment of stercoral Colitis. Plan: Stercoral colitis -Stable, afebrile -CT abd/pelvis(Adm): showed Retained rectal stool and thickened wall, likely due to stercoral colitis. No other acute abnormality. Small hiatal hernia. Incidental Bochdalek's hernia (see full report) -Continue to monitor bowel function -Reglan 10mg Q6H [facility] | Colace 100mg PO Daily, Dulculax Daily. -Liquid Diet -GI on consult, Dr Valdivia, help appreciated Elevated lactic acid -Lactate trending up -Started on IV fluid hydration -F/U repeat lactate Anemia -F/U Anemia Workup -Monitor H/H -Hold Blood thinners History of opioid dependence and methadone use -Patient states that she has not been using methadone -Follow up UDS External hemorrhoids -Anusol 1gm FL BID Anxiety -Xanax 2mg PO TID -Atarax 25mg PO BID prn, Trazodone 50mg PO HS, Ambien 5mg PO HS History of Urinary retention -Flomax 0.4mg PO daily GI/DVT ppx: Protonix 40 Lovenox 40mg SC daily Dipso: Will continue to advance diet as tolerated. Need to f/u on PT recs. Plan discussed with Dr Julianne Rebollar DO PGY-2"
[2018-10-11] MEDS: Multiple Vitamins Tab PO SCH (09:20)
[2018-10-11] MEDS: Enoxaparin 40 mg Syringe SC SCH (09:23)
[2018-10-11] MEDS: Hydrocortisone 2.5% Rectal Cream(30 gm) PR SCH ×2 (09:25→17:40)
[2018-10-11 11:38] LABS: IRON 57 ug/dL (37-170)
[2018-10-11 11:48] LABS: % IRON SATURATION 21 (20-55); TOTAL IRON BINDING CAPACITY 264 ug/dL (250-450)
[2018-10-11] MEDS ORDERED: Propofol 10 mg/ml Inj (20 ML) ONE (12:39)
[2018-10-11 12:44] LABS: FOLATE > 20.0 ng/mL
[2018-10-11] MEDS ORDERED: Magnesium Citrate Oral SOL (300 ml) PO ONE (13:00)
[2018-10-11] MEDS ORDERED: Bisacodyl 5mg EC Tab PO ONE (17:00)
[2018-10-11 17:11] LABS: VENOUS BLOOD GAS BASE EXCESS 7.8 mmol/L (0.0-2.0); VENOUS BLOOD GAS PCO2 54 mmHg (40-60); VENOUS BLOOD GAS PO2 31 mm/Hg (30-55); VENOUS BLOOD PH 7.41 (7.32-7.43)
--- NOTE | 2018-10-11 17:23 | PN ---
DATE: 10/11/2018 LOCATION: 364, bed B. SUBJECTIVE: This 73-year-old female was seen and examined in the endoscopy room, was scheduled initially for colonoscopy today. However, the patient was found by rectal examination having retained large amount of solid fecal material for which colonoscopy had to be canceled today and rescheduled tomorrow. However, her hemoglobin today dropped to 9.6, hematocrit 38.3 with low potassium, increased BUN 19, normal creatinine, calcium 8.2, total protein 5.2, and albumin 2.9. Cancer markers so far reported to be within normal limits. Case discussed with the staff as well as the anesthesia team and admitting medical team as well as Dr. Whitaker and the patient to be rescheduled for colonoscopy tomorrow. Further recommendation to follow post colonoscopy. Vanessa Castaneda MD
[2018-10-11] MEDS: Pantoprazole 40 mg EC Tab PO SCH (17:39)
[2018-10-12] MEDS: Sodium Chloride 0.9% 1,000 ML IV SCH ×2 (03:00→18:03)
[2018-10-12 07:30] LABS: BASO % 0.6 % (0.0-2.0); EOS # 0.1 K/uL (0.0-0.7); EOS % 2.2 % (0.0-4.0); HEMOGLOBIN 11.3 g/dL (11.0-16.0); LYMPH # 0.8 K/uL (1.0-4.3); LYMPH % 13.7 % (20.0-40.0); MEAN CELL VOLUME 90.8 fL (81.0-99.0); MEAN CORPUSCULAR HEMOGLOBIN 30.6 pg (27.0-31.0); MEAN CORPUSCULAR HGB CONC 33.7 g/dL (33.0-37.0); MEAN PLATELET VOLUME 8.1 fL (7.2-11.7); MONO # 0.4 K/uL (0.0-0.8); MONO % 6.8 % (0.0-10.0); NEUT # 4.6 K/uL (1.8-7.0); NEUT % 76.7 % (50.0-75.0); RBC 3.7 Mil/uL (3.80-5.20); RED CELL DISTRIBUTION WIDTH 12.9 % (11.5-14.5); WHITE BLOOD COUNT 5.9 K/uL (4.8-10.8)
--- NOTE | 2018-10-12 07:40 | CP.PCM.PN ---
Subjective - Date & Time of Evaluation Date of Evaluation: 10/12/18 Time of Evaluation: 07:40 - Subjective Subjective: Medicine Progress Note- Dr Whitaker's Service Patient seen and examined at bedside. Per nursing no acute events overnight. Patient is NPO for colonoscopy today Objective - Vital Signs/Intake and Output Vital Signs (last 24 hours): Temp Pulse Resp BP Pulse Ox 98 F 78 20 122/71 98 10/12/18 07:00 10/12/18 07:00 10/12/18 07:00 10/12/18 07:00 10/12/18 07:00 Intake and Output: 10/12/18 10/12/18 06:59 18:59 Intake Total 1000 Output Total 2 Balance 998 - Medications Medications: Current Medications Alprazolam (Xanax) 2 mg PO TID [facility] Last Admin: 10/11/18 17:39 Dose: 2 mg Bisacodyl (Dulcolax) 10 mg [place] DAILY [facility] Last Admin: 10/11/18 09:24 Dose: Not Given Docusate Sodium (Colace) 100 mg PO DAILY [facility] Last Admin: 10/11/18 09:24 Dose: 100 mg Furosemide (Lasix) 40 mg PO DAILY [facility] Last Admin: 10/11/18 09:20 Dose: 40 mg Hydrocortisone (Anusol-Hc) 1 gm [place] BID [facility] Last Admin: 10/11/18 17:40 Dose: 1 applic Hydroxyzine HCl (Atarax) 25 mg PO BID PRN PRN Reason: Anxiety Last Admin: 10/08/18 22:31 Dose: 25 mg Sodium Chloride (Sodium Chloride 0.9%) 1,000 mls @ 100 mls/hr IV .Q10H [facility] Last Admin: 10/12/18 03:00 Dose: 100 mls/hr Influenza Virus Vaccine (Flucelvax Quad [id number] Syr) 60 mcg IM .ONCE ONE Stop: 10/13/18 10:01 Levetiracetam (Keppra) 250 mg PO BID [facility] Last Admin: 10/11/18 17:40 Dose: 250 mg Metoclopramide HCl (Reglan) 10 mg IVP Q6H [facility] Last Admin: 10/12/18 05:59 Dose: 10 mg Multivitamins (Hexavitamin) 1 tab PO DAILY [facility] Last Admin: 03/26/19 09:20 Dose: 1 tab Pantoprazole Sodium (Protonix Ec Tab) 40 mg PO DAILY [facility] Last Admin: 10/11/18 17:39 Dose: 40 mg Pneumococcal Polyvalent Vaccine (Pneumovax 23 Vaccine) 0.5 ml IM .ONCE ONE Stop: 10/13/18 10:01 Tamsulosin HCl (Flomax) 0.4 mg PO DAILY [facility] Last Admin: 10/11/18 09:20 Dose: 0.4 mg Trazodone HCl (Desyrel) 50 mg PO HS [facility] Last Admin: 10/11/18 21:50 Dose: 50 mg Zolpidem Tartrate (Ambien) 5 mg PO HS [facility] Last Admin: 10/11/18 21:50 Dose: 5 mg - Labs Labs: 10/11/18 06:08 10/11/18 06:08 - Additional Findings Additional findings: - Constitutional Appears: Non-toxic, No Acute Distress, Older Than Stated Age, Chronically Ill - Head Exam Head Exam: ATRAUMATIC, NORMAL INSPECTION - Eye Exam Eye Exam: EOMI, Normal appearance - ENT Exam ENT Exam: Mucous Membranes Moist - Respiratory Exam Respiratory Exam: Clear to Ausculation Bilateral, NORMAL BREATHING PATTERN. absent: Rales, Rhonchi, Wheezes - Cardiovascular Exam Cardiovascular Exam: REGULAR RHYTHM, +S1, +S2 - GI/Abdominal Exam GI & Abdominal Exam: Soft. absent: Guarding, Rigid, Tenderness - Extremities Exam Extremities Exam: absent: Calf Tenderness - Neurological Exam Neurological Exam: Alert, Awake Assessment and Plan - Assessment and Plan (Free Text) Assessment: Chronic constipation -Stable, afebrile -Unable to perform colonoscopy due to stool in rectal vault -Continue bowel prep, for colonoscopy tomorrow -CT abd/pelvis showed Retained rectal stool and thickened wall, likely due to stercoral colitis. No other acute abnormality. Small hiatal hernia. Incidental Bochdalek's hernia (see full report) -Continue to monitor bowel function -Reglan 10mg Q6H [facility] -GI on consult, Dr Valdivia, help appreciated Elevated lactic acid (resolved) -Lactate normalized History of opioid dependence and methadone use -Patient states that she has not been using methadone External hemorrhoids -Anusol 1gm IA BID Anxiety -Xanax 2mg PO TID -Atarax 25mg PO BID prn, Trazodone 50mg PO HS, Ambien 5mg PO HS History of Urinary retention -Flomax 0.4mg PO daily GI/DVT ppx: NO GI ppx indicated at this time Lovenox 40mg SC daily Plan discussed with Dr Julianne Finley DO PGY-2
[2018-10-12 07:55] LABS: ALB/GLOB RATIO 1.4 (1.0-2.1); ALBUMIN 3.5 g/dL (3.5-5.0); ALT/SGPT 22 U/L (9-52); AST/SGOT 36 U/L (14-36); BLOOD UREA NITROGEN 12 mg/dL (7-17); CALCIUM 8.9 mg/dl (8.6-10.4); GFR NON-AFRICAN AMERICAN > 60
[2018-10-12] MEDS ORDERED: Bisacodyl 5mg EC Tab PO STA (08:31)
[2018-10-12] MEDS: Hydrocortisone 2.5% Rectal Cream(30 gm) PR SCH ×2 (11:07→18:01)
[2018-10-12] MEDS: Multiple Vitamins Tab PO SCH ×2 (11:08→14:15)
[2018-10-12] MEDS: Pantoprazole 40 mg EC Tab PO SCH ×2 (11:09→14:15)
[2018-10-12] MEDS ORDERED: Magnesium Citrate Oral SOL (300 ml) PO ONE (11:45)
--- NOTE | 2018-10-12 12:28 | CP.PCM.PN ---
Subjective - Date & Time of Evaluation Date of Evaluation: 10/12/18 Time of Evaluation: 11:00 - Subjective Subjective: PGY5 GI Follow-up Note Pt seen and examined with Dr. Valdivia\ Colonoscopy again postponed due to solid stool in rectal vault, to tomorrow 10/13/2018 ROS: 12 point ROS conducted, neg other than above Objective - Vital Signs/Intake and Output Vital Signs (last 24 hours): Temp Pulse Resp BP Pulse Ox 98 F 78 20 122/71 98 10/12/18 07:00 10/12/18 07:00 10/12/18 07:00 10/12/18 07:00 10/12/18 07:00 Intake and Output: 10/12/18 10/12/18 06:59 18:59 Intake Total 1000 Output Total 2 Balance 998 - Medications Medications: Current Medications Alprazolam (Xanax) 2 mg PO TID [facility] Last Admin: 10/12/18 11:09 Dose: Not Given Bisacodyl (Dulcolax) 10 mg [place] DAILY [facility] Last Admin: 10/12/18 11:07 Dose: 10 mg Bisacodyl (Dulcolax) 10 mg PO ONCE ONE Stop: 10/12/18 17:01 Docusate Sodium (Colace) 100 mg PO DAILY [facility] Last Admin: 10/12/18 11:08 Dose: Not Given Furosemide (Lasix) 40 mg PO DAILY [facility] Last Admin: 10/12/18 11:08 Dose: Not Given Hydrocortisone (Anusol-Hc) 1 gm [place] BID [facility] Last Admin: 10/12/18 11:07 Dose: 1 applic Hydroxyzine HCl (Atarax) 25 mg PO BID PRN PRN Reason: Anxiety Last Admin: 10/08/18 22:31 Dose: 25 mg Sodium Chloride (Sodium Chloride 0.9%) 1,000 mls @ 100 mls/hr IV .Q10H [facility] Last Admin: 10/12/18 03:00 Dose: 100 mls/hr Influenza Virus Vaccine (Flucelvax Quad [id number] Syr) 60 mcg IM .ONCE ONE Stop: 10/13/18 10:01 Levetiracetam (Keppra) 250 mg PO BID [facility] Last Admin: 10/12/18 11:08 Dose: Not Given Metoclopramide HCl (Reglan) 10 mg IVP Q6H [facility] Last Admin: 10/12/18 12:14 Dose: 10 mg Multivitamins (Hexavitamin) 1 tab PO DAILY [facility] Last Admin: 10/12/18 11:08 Dose: Not Given Pantoprazole Sodium (Protonix Ec Tab) 40 mg PO DAILY [facility] Last Admin: 10/12/18 11:09 Dose: Not Given Pneumococcal Polyvalent Vaccine (Pneumovax 23 Vaccine) 0.5 ml IM .ONCE ONE Stop: 10/13/18 10:01 Tamsulosin HCl (Flomax) 0.4 mg PO DAILY [facility] Last Admin: 10/12/18 11:08 Dose: Not Given Trazodone HCl (Desyrel) 50 mg PO [facility] Last Admin: 10/11/18 21:50 Dose: 50 mg Zolpidem Tartrate (Ambien) 5 mg PO [facility] Last Admin: 10/11/18 21:50 Dose: 5 mg - Labs Labs: 10/12/18 07:21 10/12/18 07:21 - Constitutional Appears: Non-toxic, No Acute Distress - Head Exam Head Exam: ATRAUMATIC, NORMOCEPHALIC - Eye Exam Eye Exam: Normal appearance - ENT Exam ENT Exam: Mucous Membranes Moist - Neck Exam Neck Exam: Normal Inspection - Respiratory Exam Respiratory Exam: Clear to Ausculation Bilateral, NORMAL BREATHING PATTERN. absent: Rales, Rhonchi, Wheezes, Respiratory Distress - Cardiovascular Exam Cardiovascular Exam: REGULAR RHYTHM, +S1, +S2 - GI/Abdominal Exam GI & Abdominal Exam: Soft, Normal Bowel Sounds. absent: Distended, Firm, Rigid, Tenderness, Hyperactive Bowel Sounds, Organomegaly, Pulsatile Mass, Rebound - Extremities Exam Extremities Exam: absent: Joint Swelling, Pedal Edema - Neurological Exam Neurological Exam: Alert, Awake, Oriented x3 - Psychiatric Exam Additional comments: cannot assess - Skin Skin Exam: Dry, Intact, Normal Color, Warm Assessment and Plan - Assessment and Plan (Free Text) Assessment: 73 year old female with PMHx of Opiod dependence on MEthadone, external hemorrhoids, Anxiety, urinary retention, and chronic constipation admitted for evaluation and treatment of rectal thickening of the rectal vault. Anemia Rectal wall thickening; DDx: stercoral Colitis; t/o malignancy, IBD Anemia Chronic constipation GERD Plan: -Will Reschedule for tomorrow -okay for clears for today -continue golytly -NPO after midnight -repeat labs in the AM D/w Dr. Valdivia
[2018-10-12] MEDS ORDERED: Bisacodyl 5mg EC Tab PO ONE (17:00)
[2018-10-13] MEDS: Sodium Chloride 0.9% 1,000 ML IV SCH (04:10)
[2018-10-13 06:57] LABS: BASO % 0.7 % (0.0-2.0); EOS # 0.2 K/uL (0.0-0.7); EOS % 3.4 % (0.0-4.0); HEMOGLOBIN 10.2 g/dL (11.0-16.0); LYMPH # 0.8 K/uL (1.0-4.3); LYMPH % 16.9 % (20.0-40.0); MEAN CELL VOLUME 90.5 fL (81.0-99.0); MEAN CORPUSCULAR HEMOGLOBIN 31.1 pg (27.0-31.0); MEAN CORPUSCULAR HGB CONC 34.4 g/dL (33.0-37.0); MEAN PLATELET VOLUME 7.8 fL (7.2-11.7); MONO # 0.4 K/uL (0.0-0.8); MONO % 8.3 % (0.0-10.0); NEUT # 3.4 K/uL (1.8-7.0); NEUT % 70.7 % (50.0-75.0); RBC 3.28 Mil/uL (3.80-5.20); RED CELL DISTRIBUTION WIDTH 12.4 % (11.5-14.5); WHITE BLOOD COUNT 4.8 K/uL (4.8-10.8)
[2018-10-13 07:30] LABS: ALB/GLOB RATIO 1.3 (1.0-2.1); ALT/SGPT 10 U/L (9-52); AST/SGOT 36 U/L (14-36); BLOOD UREA NITROGEN 10 mg/dL (7-17); CALCIUM 8.5 mg/dl (8.6-10.4); GFR NON-AFRICAN AMERICAN 55
[2018-10-13] MEDS ORDERED: Influenza Vaccine 60 mcg/0.5 mL SYR (4YR UP) IM ONE (10:00)
[2018-10-13] MEDS ORDERED: Pneumococcal 23-Valent Vaccine IM ONE (10:00)
[2018-10-13] MEDS: Multiple Vitamins Tab PO SCH (10:05)
[2018-10-13] MEDS: Pantoprazole 40 mg EC Tab PO SCH (10:06)
[2018-10-13] MEDS: Hydrocortisone 2.5% Rectal Cream(30 gm) PR SCH ×2 (10:11→17:46)
[2018-10-13] MEDS ORDERED: Lidocaine Hydrochloride 5 ML INJ ONE (11:06)
[2018-10-13] MEDS ORDERED: Propofol 10 mg/ml Inj (20 ML) ONE ×2 (11:06→11:29)
[2018-10-13] MEDS ORDERED: Etomidate 20 mg/10ml Inj IV ONE (11:06)
--- NOTE | 2018-10-13 13:22 | CP.PCM.PN ---
"Subjective - Date & Time of Evaluation Date of Evaluation: 10/13/18 Time of Evaluation: 13:17 - Subjective Subjective: Patient seen and examined at bedside prior to colonoscopy. No overnight events were reported. SHe audra any fevers, chills, Chest pain, SOB, abdominal pain, n/v/ or urinary symptoms. SHe does still complain of rectal pain. She stated she had a small bowel movement. Objective - Vital Signs/Intake and Output Vital Signs (last 24 hours): Temp Pulse Resp BP Pulse Ox 99.5 F 79 18 130/68 97 10/13/18 12:09 10/13/18 12:09 10/13/18 12:09 10/13/18 12:09 10/13/18 12:09 Intake and Output: 10/13/18 10/13/18 06:59 18:59 Intake Total 400 350 Balance 400 350 - Medications Medications: Current Medications Alprazolam (Xanax) 2 mg PO TID [facility] Last Admin: 10/13/18 10:06 Dose: Not Given Bisacodyl (Dulcolax) 10 mg [place] DAILY [facility] Last Admin: 10/13/18 10:10 Dose: 10 mg Docusate Sodium (Colace) 100 mg PO DAILY [facility] Last Admin: 10/13/18 10:04 Dose: Not Given Furosemide (Lasix) 40 mg PO DAILY [facility] Last Admin: 10/13/18 10:05 Dose: Not Given Hydrocortisone (Anusol-Hc) 1 gm [place] BID [facility] Last Admin: 10/13/18 10:11 Dose: 1 applic Hydroxyzine HCl (Atarax) 25 mg PO BID PRN PRN Reason: Anxiety Last Admin: 10/08/18 22:31 Dose: 25 mg Sodium Chloride (Sodium Chloride 0.9%) 1,000 mls @ 50 mls/hr IV .Q20H [facility] Last Admin: 10/13/18 04:10 Dose: 50 mls/hr Potassium Chloride (Potassium Chloride 20 Meq/100 Ml) 20 meq in 100 mls @ 50 mls/hr IVPB Q2H [facility] Stop: 10/13/18 18:59 Last Admin: 10/13/18 13:02 Dose: 50 mls/hr Levetiracetam (Keppra) 250 mg PO BID [facility] Last Admin: 10/13/18 10:05 Dose: Not Given Metoclopramide HCl (Reglan) 10 mg IVP Q6H [facility] Last Admin: 10/13/18 13:00 Dose: 10 mg Multivitamins (Hexavitamin) 1 tab PO DAILY [facility] Last Admin: 10/13/18 10:05 Dose: Not Given Pantoprazole Sodium (Protonix Ec Tab) 40 mg PO DAILY [facility] Last Admin: 10/13/18 10:06 Dose: Not Given Tamsulosin HCl (Flomax) 0.4 mg PO DAILY [facility] Last Admin: 10/13/18 10:04 Dose: Not Given Trazodone HCl (Desyrel) 50 mg PO HS [facility] Last Admin: 10/12/18 21:19 Dose: Not Given Zolpidem Tartrate (Ambien) 5 mg PO [facility] Last Admin: 10/12/18 21:33 Dose: 5 mg - Labs Labs: 10/13/18 06:41 10/13/18 06:41 - Additional Findings Additional findings: - Constitutional Appears: Non-toxic, No Acute Distress, Chronically Ill - Head Exam Head Exam: ATRAUMATIC, NORMAL INSPECTION, NORMOCEPHALIC - Eye Exam Eye Exam: EOMI, Normal appearance. absent: Scleral icterus - ENT Exam ENT Exam: Mucous Membranes Moist - Respiratory Exam Respiratory Exam: Clear to Ausculation Bilateral, NORMAL BREATHING PATTERN. absent: Accessory Muscle Use - Cardiovascular Exam Cardiovascular Exam: RRR, +S1, +S2 - GI/Abdominal Exam GI & Abdominal Exam: Soft, Normal Bowel Sounds. absent: Tenderness - Extremities Exam Extremities Exam: absent: Pedal Edema - Neurological Exam Neurological Exam: Awake. absent: Alert (Lethargic) - Psychiatric Exam Psychiatric exam: Anxious and Aggravated. - Skin Skin Exam: Dry, Intact, Normal Color, Warm Assessment and Plan - Assessment and Plan (Free Text) Assessment: 73 year old female with PMHx of Opiod dependence on MEthadone, external hemorrhoids, Anxiety, urinary retention, and chronic constipation admitted for evaluation and treatment of stercoral Colitis. Plan: Stercoral colitis -Stable, afebrile -CT abd/pelvis(Adm): showed Retained rectal stool and thickened wall, likely due to stercoral colitis. No other acute abnormality. Small hiatal hernia. Incidental Bochdalek's hernia (see full report) -Colonoscopy(10/13/18): Non-Bleeding External/Internal Hemorrhoids. Congested mucosa in descending Colon, Moderate colonic spasm. -Continue to monitor bowel function -Reglan 10mg Q6H [facility] | Colace 100mg PO Daily, Dulculax Daily. - Heart Healthy Diet. -GI on consult, Dr Valdivia, help appreciated Bentyl 10mg PO BID 30 minutes before Meals for 8 months Analapram HC Cream 2.5% Externally BID for 8 weeks. Elevated lactic acid (RESOLVED) Lactate elevated at 2.3. Repeat lactate WNL. Anemia -Anemia Workup WNL. -Will Consider Heme Consult. -Monitor H/H. History of opioid dependence and methadone use -Patient states that she has not been using methadone -Follow up UDS External hemorrhoids -Anusol 1gm [place] BID Anxiety -Xanax 2mg PO TID -Atarax 25mg PO BID prn, Trazodone 50mg PO HS, Ambien 5mg PO HS History of Urinary retention -Flomax 0.4mg PO daily GI/DVT ppx: Protonix 40 Lovenox 40mg SC daily Dipso: PENDING PT eval with recs. Patient will likely need to go to rehab after this visit. Plan to DC tomorrow if HgB is stable. Patient to go home with prescriptions for Bentyl 10mg PO BID 30 minutes before Meals & Analapram HC Cream 2.5% Externally BID for 8 weeks. She is to follow up with her PMD within 2 weeks. She is also to follow up with Dr. Valdivia in 6 weeks. Plan discussed with Dr Julianne Rebollar DO PGY-2"
[2018-10-13 16:30] VITALS: RESP 20
[2018-10-14] MEDS: Pantoprazole 40 mg EC Tab PO SCH (11:56)
[2018-10-14] MEDS: Multiple Vitamins Tab PO SCH (11:56)
[2018-10-14] MEDS: Hydrocortisone 2.5% Rectal Cream(30 gm) PR SCH ×2 (11:57→17:28)
[2018-10-14 12:00] LABS: BASO # 0.1 K/uL (0.0-0.2); EOS # 0.2 K/uL (0.0-0.7); EOS % 4.3 % (0.0-4.0); HEMOGLOBIN 10.6 g/dL (11.0-16.0); LYMPH # 0.8 K/uL (1.0-4.3); LYMPH % 14.7 % (20.0-40.0); MEAN CELL VOLUME 91.3 fL (81.0-99.0); MEAN CORPUSCULAR HEMOGLOBIN 31.1 pg (27.0-31.0); MEAN CORPUSCULAR HGB CONC 34.1 g/dL (33.0-37.0); MEAN PLATELET VOLUME 8.1 fL (7.2-11.7); MONO # 0.4 K/uL (0.0-0.8); MONO % 6.9 % (0.0-10.0); NEUT # 3.9 K/uL (1.8-7.0); NEUT % 73.1 % (50.0-75.0); RBC 3.4 Mil/uL (3.80-5.20); RED CELL DISTRIBUTION WIDTH 12.8 % (11.5-14.5); WHITE BLOOD COUNT 5.4 K/uL (4.8-10.8)
[2018-10-14] MEDS: Sodium Chloride 0.9% 1,000 ML IV SCH ×2 (12:04→21:45)
[2018-10-14 12:14] LABS: ALB/GLOB RATIO 1.4 (1.0-2.1); ALBUMIN 3.3 g/dL (3.5-5.0); ALT/SGPT 9 U/L (9-52); AST/SGOT 33 U/L (14-36); BLOOD UREA NITROGEN 8 mg/dL (7-17); CALCIUM 8.8 mg/dl (8.6-10.4); GFR NON-AFRICAN AMERICAN > 60
--- NOTE | 2018-10-14 13:12 | CP.PCM.PN ---
"Subjective - Date & Time of Evaluation Date of Evaluation: 10/14/18 Time of Evaluation: 10:00 - Subjective Subjective: Patient seen and examined at bedside prior to colonoscopy. No overnight events were reported. SHe audra any fevers, chills, Chest pain, SOB, abdominal pain, n/v/ or urinary symptoms. SHe does still complain of rectal pain. +BM Objective - Vital Signs/Intake and Output Vital Signs (last 24 hours): Temp Pulse Resp BP Pulse Ox 97.8 F 86 20 128/81 94 L 10/14/18 07:48 10/14/18 07:48 10/14/18 07:48 10/14/18 12:03 10/14/18 07:48 Intake and Output: 10/14/18 10/14/18 06:59 18:59 Intake Total 1080 Balance 1080 - Medications Medications: Current Medications Alprazolam (Xanax) 2 mg PO TID [facility] Last Admin: 10/14/18 10:00 Dose: Not Given Bisacodyl (Dulcolax) 10 mg SC DAILY [facility] Last Admin: 10/14/18 11:43 Dose: Not Given Dicyclomine HCl (Bentyl) 10 mg PO BIDAC [facility] Stop: 06/15/19 23:59 Last Admin: 10/14/18 08:00 Dose: Not Given Docusate Sodium (Colace) 100 mg PO DAILY [facility] Last Admin: 10/14/18 11:56 Dose: 100 mg Furosemide (Lasix) 40 mg PO DAILY [facility] Last Admin: 10/14/18 12:03 Dose: 40 mg Hydrocortisone (Anusol-Hc) 1 gm SC BID [facility] Last Admin: 10/14/18 11:57 Dose: 1 applic Hydroxyzine HCl (Atarax) 25 mg PO BID PRN PRN Reason: Anxiety Last Admin: 10/08/18 22:31 Dose: 25 mg Sodium Chloride (Sodium Chloride 0.9%) 1,000 mls @ 50 mls/hr IV .Q20H [facility] Last Admin: 10/14/18 12:04 Dose: Not Given Levetiracetam (Keppra) 250 mg PO BID [facility] Last Admin: 10/14/18 11:56 Dose: 250 mg Metoclopramide HCl (Reglan) 10 mg IVP Q6H [facility] Last Admin: 10/14/18 12:35 Dose: 10 mg Multivitamins (Hexavitamin) 1 tab PO DAILY [facility] Last Admin: 10/14/18 11:56 Dose: 1 tab Pantoprazole Sodium (Protonix Ec Tab) 40 mg PO DAILY [facility] Last Admin: 10/14/18 11:56 Dose: 40 mg Potassium Chloride (K-Dur 20 Meq Er Tab) 40 meq PO ONCE ONE Stop: 10/14/18 12:44 Tamsulosin HCl (Flomax) 0.4 mg PO DAILY [facility] Last Admin: 10/14/18 11:56 Dose: 0.4 mg Trazodone HCl (Desyrel) 50 mg PO [facility] Last Admin: 10/13/18 21:31 Dose: 50 mg Zolpidem Tartrate (Ambien) 5 mg PO [facility] Last Admin: 10/13/18 21:31 Dose: 5 mg - Labs Labs: 10/14/18 11:53 10/14/18 11:53 - Additional Findings Additional findings: - Constitutional Appears: Non-toxic, No Acute Distress, Chronically Ill - Head Exam Head Exam: ATRAUMATIC, NORMAL INSPECTION, NORMOCEPHALIC - Eye Exam Eye Exam: EOMI, Normal appearance. absent: Scleral icterus - ENT Exam ENT Exam: Mucous Membranes Moist - Respiratory Exam Respiratory Exam: Clear to Ausculation Bilateral, NORMAL BREATHING PATTERN. absent: Accessory Muscle Use - Cardiovascular Exam Cardiovascular Exam: RRR, +S1, +S2 - GI/Abdominal Exam GI & Abdominal Exam: Soft, Normal Bowel Sounds. absent: Tenderness - Extremities Exam Extremities Exam: absent: Pedal Edema - Neurological Exam Neurological Exam: Awake. absent: Alert (Lethargic) - Psychiatric Exam Psychiatric exam: Anxious - Skin Skin Exam: Dry, Intact, Normal Color, Warm Assessment and Plan - Assessment and Plan (Free Text) Assessment: 73 year old female with PMHx of Opiod dependence on MEthadone, external hemorrhoids, Anxiety, urinary retention, and chronic constipation admitted for evaluation and treatment of stercoral Colitis. Plan: Stercoral colitis -Stable, afebrile -CT abd/pelvis(Adm): showed Retained rectal stool and thickened wall, likely due to stercoral colitis. No other acute abnormality. Small hiatal hernia. Incidental Bochdalek's hernia (see full report) -Colonoscopy(10/13/18): Non-Bleeding External/Internal Hemorrhoids. Congested mucosa in descending Colon, Moderate colonic spasm. -Continue to monitor bowel function -Reglan 10mg Q6H DEREK | Colace 100mg PO Daily, Dulculax Daily. - Heart Healthy Diet. -GI on consult, Dr Valdivia, help appreciated Bentyl 10mg PO BID 30 minutes before Meals for 8 months Analapram HC Cream 2.5% Externally BID for 8 weeks. Elevated lactic acid (RESOLVED) Lactate elevated at 2.3. Repeat lactate WNL. Anemia -Anemia Workup WNL. -Will Consider Heme Consult. -Monitor H/H. History of opioid dependence and methadone use -Patient states that she has not been using methadone -Follow up UDS External hemorrhoids -Anusol 1gm SC BID Anxiety -Xanax 2mg PO TID -Atarax 25mg PO BID prn, Trazodone 50mg PO HS, Ambien 5mg PO HS History of Urinary retention -Flomax 0.4mg PO daily GI/DVT ppx: Protonix 40 Lovenox 40mg SC daily Dipso: PENDING PT eval with recs. Plan to DC tomorrow if HgB is stable. Pat ient to go home with prescriptions for Bentyl 10mg PO BID 30 minutes before Meals & Analapram HC Cream 2.5% Externally BID for 8 weeks. She is to follow up with her PMD within 2 weeks. She is also to follow up with Dr. Valdivia in 6 weeks. Plan discussed with Dr Julianne Rebollar DO PGY-2"
[2018-10-14] MEDS ORDERED: Potassium Chloride 20 mEq ER Tab PO ONE (13:45)
--- NOTE | 2018-10-14 16:48 | PN ---
DATE: 10/14/2018 LOCATION: 359, bed B. SUBJECTIVE: This 73-year-old female post colonoscopy with biopsy yesterday, seen and examined in rounds without reported nausea or vomiting or evidence of active GI bleeding, somewhat tolerating oral intake well. The entire chart is reviewed including but not limited to the most recent lab and radiology study results, current and the previous medication list, current and the previous medical events. The patient denied any actual chest pain, palpitation or shortness of breath, no chills or fever. However, she still has intermittent periods of lower abdominal pain with rectal pain. LABORATORY DATA: Today's lab results showed hemoglobin of 10.6, hematocrit 31 with normal platelet count. Potassium 3.2, phosphorus 2.1, albumin 3.3, total protein 5.5. PHYSICAL EXAMINATION: GENERAL: A 73-year-old female, awake, alert, oriented. VITAL SIGNS: Afebrile with blood pressure 130/76, pulse of 82, respiratory rate 20-22. HEENT: Showed mildly pale dry oral mucoid membrane. Nonicteric sclerae. LUNGS: Few scattered crepitations. Decreased air entry at bases. HEART: Positive S1 and S2. ABDOMEN: Soft with mild generalized tenderness. No mass or organomegaly. No rebound tenderness or guarding. EXTREMITIES: Without significant edema, clubbing or cyanosis. NEUROLOGIC: No reported new neurological deficits, sensory or motor. IMPRESSION AND PLAN: 1. High-fiber diet, no seeds. 2. Bentyl 20 mg 1 tablet twice a day. 3. Repeat stool for occult blood. 4. Due to the patient's anemia, upper endoscopy to be kept in mind. Otherwise close observation to follow. Vanessa Castaneda MD
[2018-10-15] MEDS: Sodium Chloride 0.9% 1,000 ML IV SCH ×2 (06:38→19:00)
[2018-10-15 07:53] LABS: BASO % 0.8 % (0.0-2.0); EOS # 0.3 K/uL (0.0-0.7); EOS % 5.4 % (0.0-4.0); HEMOGLOBIN 9.6 g/dL (11.0-16.0); LYMPH # 1.1 K/uL (1.0-4.3); MEAN CELL VOLUME 90.7 fL (81.0-99.0); MEAN CORPUSCULAR HEMOGLOBIN 30.3 pg (27.0-31.0); MEAN CORPUSCULAR HGB CONC 33.4 g/dL (33.0-37.0); MONO # 0.5 K/uL (0.0-0.8); MONO % 9.5 % (0.0-10.0); NEUT % 62.3 % (50.0-75.0); RBC 3.15 Mil/uL (3.80-5.20); RED CELL DISTRIBUTION WIDTH 12.7 % (11.5-14.5); WHITE BLOOD COUNT 4.8 K/uL (4.8-10.8)
[2018-10-15 08:06] LABS: ALB/GLOB RATIO 1.3 (1.0-2.1); ALBUMIN 2.8 g/dL (3.5-5.0); ALT/SGPT 12 U/L (9-52); AST/SGOT 31 U/L (14-36); BLOOD UREA NITROGEN 9 mg/dL (7-17); CALCIUM 8.4 mg/dl (8.6-10.4); GFR NON-AFRICAN AMERICAN > 60
[2018-10-15] MEDS: Multiple Vitamins Tab PO SCH (09:11)
[2018-10-15] MEDS: Hydrocortisone 2.5% Rectal Cream(30 gm) PR SCH ×2 (09:11→17:18)
[2018-10-15] MEDS: Pantoprazole 40 mg EC Tab PO SCH (09:11)
[2018-10-15] MEDS: Belladonna-Phenobarbital PO SCH ×2 (10:47→17:19)
--- NOTE | 2018-10-15 12:30 | CP.PCM.PN ---
Subjective - Date & Time of Evaluation Date of Evaluation: 10/15/18 Time of Evaluation: 12:29 - Subjective Subjective: PATIENT SEEN AND EXAMINED AT THE BEDSIDE Objective - Vital Signs/Intake and Output Vital Signs (last 24 hours): Temp Pulse Resp BP Pulse Ox 98.0 F 67 20 130/75 93 L 10/15/18 08:39 10/15/18 08:39 10/15/18 08:39 10/15/18 09:11 10/15/18 08:39 Intake and Output: 10/15/18 10/15/18 06:59 18:59 Intake Total 400 Balance 400 - Medications Medications: Current Medications Alprazolam (Xanax) 2 mg PO TID [facility]S [facility] Last Admin: 10/15/18 09:12 Dose: 2 mg Belladonna/Phenobarbital () 1 tab PO BID [facility] 234 B[facility]S [facility] Last Admin: 10/15/18 10:47 Dose: 1 tab Bisacodyl (Dulcolax) 10 mg AR DAILY [facility] 234 B[facility]S [facility] Last Admin: 10/15/18 09:12 Dose: Not Given Dicyclomine HCl (Bentyl) 10 mg PO BIDAC [facility] 234 BEDS [facility] Stop: 06/15/19 23:59 Last Admin: 10/15/18 07:30 Dose: 10 mg Docusate Sodium (Colace) 100 mg PO DAILY [facility]S [facility] Last Admin: 10/15/18 09:11 Dose: 100 mg Furosemide (Lasix) 40 mg PO DAILY [facility] 234 [facility]S [facility] Last Admin: 10/15/18 09:11 Dose: 40 mg Hydrocortisone (Anusol-Hc) 1 gm AR BID [facility] 234 B[facility]S [facility] Last Admin: 10/15/18 09:11 Dose: 1 applic Hydroxyzine HCl (Atarax) 25 mg PO BID PRN PRN Reason: Anxiety Last Admin: 10/08/18 22:31 Dose: 25 mg Sodium Chloride (Sodium Chloride 0.9%) 1,000 mls @ 50 mls/hr IV .Q20H [facility] 234 [facility]S [facility] Last Admin: 10/15/18 06:38 Dose: Not Given Levetiracetam (Keppra) 250 mg PO BID [facility] Last Admin: 10/15/18 09:12 Dose: 250 mg Metoclopramide HCl (Reglan) 10 mg IVP Q6H [facility] 234 [facility]S [facility] Last Admin: 10/15/18 11:50 Dose: 10 mg Multivitamins (Hexavitamin) 1 tab PO DAILY [facility]S [facility] Last Admin: 10/15/18 09:11 Dose: 1 tab Pantoprazole Sodium (Protonix Ec Tab) 40 mg PO DAILY [facility] Last Admin: 10/15/18 09:11 Dose: 40 mg Tamsulosin HCl (Flomax) 0.4 mg PO DAILY [facility] Last Admin: 10/15/18 09:12 Dose: 0.4 mg Trazodone HCl (Desyrel) 50 mg PO HS [facility] 234 [facility]S [facility] Last Admin: 10/14/18 21:12 Dose: 50 mg Zolpidem Tartrate (Ambien) 5 mg PO HS [facility] 234 [facility]S [facility] Last Admin: 10/14/18 21:12 Dose: 5 mg - Labs Labs: 10/15/18 07:26 10/15/18 07:26 Assessment and Plan - Assessment and Plan (Free Text) Assessment: Please follow up with your primary medical provider Please follow up with [employer] Deputy Director regarding your colonoscopy pathology results. As of now, you are due for a repeat colonoscopy in 5 year unless pathology results says otherwise. Please take medications as instructed. New Medications Include: Bentyl 10mg by mouth, twice daily, 30 minutes before meals for 8 months. & Analapram HC Cream 2.5% Twice a day for 8 weeks.
--- NOTE | 2018-10-15 15:33 | PN ---
DATE: 10/15/2018 LOCATION: 359, bed B. SUBJECTIVE: This is a 73-year-old female post colonoscopy with biopsy, seen and examined in rounds without reported significant clinical changes with intermittent periods of abdominal pain on and off. The entire chart is reviewed including but not limited to the most lab results, and today's lab showed subsequent drop of hemoglobin to 9.6, hematocrit 28.6 with potassium 3.3, calcium 8.5, albumin 2.8, total protein 5.1. The patient denied any actual chest pain or palpitation, somewhat tolerating oral intake well, but with a complaint again of mid epigastric pain with nausea and postprandial distention. PHYSICAL EXAMINATION: GENERAL: This is a 73-year-old female, awake, alert, and oriented. VITAL SIGNS: Afebrile with pulse of 64, respiratory rate 20-22, blood pressure 132/70. HEENT: Showed pale dry oral mucous membrane. Nonicteric sclerae. LUNGS: Few scattered crepitations. Decreased air entry at bases. HEART: Positive S1 and S2. ABDOMEN: Soft with mild generalized tenderness. No mass or organomegaly. No rebound tenderness or guarding. EXTREMITIES: Without significant clubbing, cyanosis or edema. NEUROLOGIC: No reported new neurological deficits, sensory or motor. IMPRESSION: 1. Anemia with guaiac-positive stool, to rule out upper gastrointestinal tract blood loss with re-exacerbation of peptic ulcer disease, to rule out gastric versus duodenal ulcer. 2. Colitis and internal hemorrhoids by recent history. 3. Abnormal CAT scan of the abdomen and pelvis. 4. Known history of fibromyalgia, anxiety, hypertension, congestive heart failure. 5. Electrolyte imbalance . SUGGESTION: 1. Agree with your plan. 2. Antireflux measures. 3. Upper endoscopy if the patient's symptoms persist. 4. Further recommendation and evaluation to follow post upper endoscopy. Vanessa Castaneda MD
[2018-10-16 07:56] VITALS: PULSE 74; TEMP 98.2; O2SAT 95
[2018-10-16 08:51] LABS: BASO % 0.7 % (0.0-2.0); EOS # 0.2 K/uL (0.0-0.7); EOS % 3.7 % (0.0-4.0); HEMOGLOBIN 10.1 g/dL (11.0-16.0); LYMPH % 20.5 % (20.0-40.0); MEAN CORPUSCULAR HEMOGLOBIN 30.9 pg (27.0-31.0); MEAN CORPUSCULAR HGB CONC 33.9 g/dL (33.0-37.0); MONO # 0.5 K/uL (0.0-0.8); MONO % 9.1 % (0.0-10.0); NEUT # 3.3 K/uL (1.8-7.0); RBC 3.27 Mil/uL (3.80-5.20); RED CELL DISTRIBUTION WIDTH 13.1 % (11.5-14.5)
[2018-10-16 09:08] LABS: ALB/GLOB RATIO 1.4 (1.0-2.1); ALBUMIN 3.1 g/dL (3.5-5.0); ALT/SGPT 12 U/L (9-52); AMYLASE 126 U/L (30-110); AST/SGOT 27 U/L (14-36); BLOOD UREA NITROGEN 13 mg/dL (7-17); CALCIUM 8.8 mg/dl (8.6-10.4); GFR NON-AFRICAN AMERICAN > 60; INR 1.1; LIPASE 476 U/L (23-300); PROTHROMBIN TIME 12.1 SECONDS (9.7-12.2)
[2018-10-16] MEDS: Multiple Vitamins Tab PO SCH (09:13)
[2018-10-16] MEDS: Pantoprazole 40 mg EC Tab PO SCH (09:14)
[2018-10-16] MEDS: Hydrocortisone 2.5% Rectal Cream(30 gm) PR SCH (09:15)
[2018-10-16] MEDS: Belladonna-Phenobarbital PO SCH (09:15)
[2018-10-16 09:16] VITALS: BP 120/67
--- NOTE | 2018-10-16 09:18 | PN ---
DATE: 10/16/2018 LOCATION: 359, bed B. SUBJECTIVE: This 73-year-old female seen and examined in rounds early this morning without significant clinical changes or reported active bleeding, but persistent midepigastric pain with mild dyspepsia and nausea. No reported bowel movement yet. The patient had colonoscopy recently. The entire chart is reviewed including but not limited to the most recent lab results and today's lab results still pending. However, the patient had subsequent drop of hemoglobin and hematocrit with the latest hemoglobin of 9.6, hematocrit 28.6, for which upper endoscopy is scheduled with low calcium, low albumin and low total protein due to poor oral intake recently. PHYSICAL EXAMINATION: GENERAL: A 73-year-old female, afebrile, awake, alert. VITAL SIGNS: Pulse of 76, respiratory rate 20-22, blood pressure of 110/62. HEENT: Showed pale dry oral mucous membrane. Nonicteric sclerae. LUNGS: Few scattered crepitation. Decreased air entry at bases. HEART: Positive S1 and S2. ABDOMEN: Soft with generalized tenderness mainly in the midepigastric area and mid abdominal line. No mass or organomegaly. No rebound tenderness or guarding. EXTREMITIES: Without significant clubbing, cyanosis or edema. NEUROLOGIC: No reported new neurological deficits, sensory or motor. IMPRESSION: 1. Anemia with subsequent drop of hemoglobin and hematocrit, to rule out upper gastrointestinal blood loss versus gastric or duodenal ulcer. 2. Colitis with internal hemorrhoids by recent colonoscopy. 3. Reported abnormal CAT scan of the abdomen and pelvis. 4. Known history of but not limited to hypertension, congestive heart failure, fibromyalgia with severe anxiety syndrome. 5. Electrolyte imbalance with hypocalcemia, hypokalemia. The patient was given potassium IV, she will be in need for extra KCl IV. SUGGESTIONS: 1. Continue current management. 2. The patient for upper endoscopy at a.m. 3. Further recommendation to follow post upper endoscopy when the patient is more stable clinically. Vanessa Castaneda MD
--- NOTE | 2018-10-19 22:15 | DS ---
DATE: 10/19/2018 HISTORY OF PRESENT ILLNESS: The patient admitted to hospital complaining of abdominal pain, constipation, weakness fatigue. The patient has been having chronic constipation, hasn't moved her bowels. Patient bedrest, supportive care, multiple enemas, colonoscopy. Discharged follow up outpatient consultation. Edd Whitaker MD
== END 2018-10-16 11:35 | disposition home or self-care (01) | DRG 392 ==
LOC: C.ER 18:11 → C.9E 20:00 → C.3T 20:14 → OBSVTOIN 10-10 13:39 → C.3T 10-10 23:09
PROVIDERS: ADMIT Internal Medicine Pulmonary Disease; ATTEND Internal Medicine Pulmonary Disease
PROC: 0DBM8ZX Excision of Descending Colon, Via Natural or Artificial Opening Endoscopic, Diagnostic (ICD-10-PCS; principal; 2018-10-13 11:05)
DX: K59.09 Other constipation (principal); K27.3 Acute peptic ulcer, site unspecified, without hemorrhage or perforation; K52.89 Other specified noninfective gastroenteritis and colitis; E86.0 Dehydration; R62.7 Adult failure to thrive; M79.7 Fibromyalgia; K64.4 Residual hemorrhoidal skin tags; K44.9 Diaphragmatic hernia without obstruction or gangrene; F41.9 Anxiety disorder, unspecified; E87.6 Hypokalemia; R33.9 Retention of urine, unspecified; I50.9 Heart failure, unspecified; D64.9 Anemia, unspecified; K21.9 Gastro-esophageal reflux disease without esophagitis; F11.21 Opioid dependence, in remission; I11.0 Hypertensive heart disease with heart failure